=== PATIENT | male | born 1960 | race Caucasian/White ===

== ENCOUNTER → 2017-09-25 | Outpatient (CLI) | payer OTHER ==
--- NOTE | 2017-09-25 17:41 | XR ---
EXAMINATION TYPE: XR chest 2V DATE OF EXAM: 09/25/2017 COMPARISON: 02/20/2016 HISTORY: Leg edema TECHNIQUE: Frontal and lateral views of the chest are obtained. FINDINGS: Heart and mediastinum are normal. There is emphysema in the right upper lobe. There is no heart failure. Costophrenic angles are clear. Bony thorax is intact. IMPRESSION: Emphysema. No acute lung disease. No change compared to old exam.
== END | disposition home or self-care (01) ==
LOC: RADXRMAIN 16:10
PROVIDERS: ATTEND Internal Medicine
DX: J43.9 Emphysema, unspecified (principal)
CPT/HCPCS: 71046

== ENCOUNTER 2018-11-15 08:51 | Inpatient (IN) | payer OTHER ==
[2018-11-15] MEDS ORDERED: IPRATROPIUM-ALBUTEROL 3 ML NEB INHALATION STA ×2 (09:03→09:26)
[2018-11-15] MEDS ORDERED: FUROSEMIDE 10 MG/ML 4 ML VIAL IV STA (09:14)
[2018-11-15] MEDS ORDERED: methylPREDNISolone SOD SUCCI 125 MG/2 ML VIAL IV STA (09:14)
--- NOTE | 2018-11-15 09:26 | ED ---
SOB HPI - General Chief Complaint: Shortness of Breath Stated Complaint: Sob Time Seen by Provider: 11/15/18 08:55 Source: patient, EMS, RN notes reviewed, old records reviewed Mode of arrival: EMS Limitations: no limitations - History of Present Illness Initial Comments: This is a 58-year-old male the ER for evaluation shortness of breath severe shortness breath cough congestion. Significant distress poor strain but in for low pulse ox and difficulty breathing. Patient's brought in by EMS history obtained by EMS. Patient denies any chest pain. No recent change in medications. No significant recent hospitalizations - Related Data Home Medications Medication Instructions Recorded Confirmed Ferrous Sulfate [Feosol] 325 mg PO DAILY 02/19/16 03/02/16 Folic Acid 1 mg PO DAILY 02/19/16 03/02/16 Metoprolol Tartrate [Lopressor] 50 mg PO DAILY 02/19/16 03/02/16 Pravastatin Sodium [Pravachol] 20 mg PO DAILY 02/19/16 03/02/16 Triamcinolone 0.1% Cream [Kenalog 1 cream TOPICAL BID 02/20/16 03/02/16 0.1% Cream] Previous Rx's Medication Instructions Recorded Aspirin 81 mg PO DAILY #0 chew 02/27/16 Cephalexin [Keflex] 500 mg PO TID #15 cap 02/27/16 Clobetasol Propionate [Temovate 1 applic TOPICAL BID applic 02/27/16 0.05% Cream] Docusate [Colace] 100 mg PO BID #20 cap 02/27/16 Furosemide [Lasix] 40 mg PO BID@0900,1600 #60 tab 02/27/16 HYDROcodone/APAP 5-325MG [Pease 1 each PO Q6HR PRN #20 tab 02/27/16 5-325] Multivitamins, Thera [Multivitamin 1 each PO DAILY@1200 #30 tab 02/27/16 (formulary)] SILVER sulfADIAZINE CREAM 1 applic TOPICAL DAILY #1 tube 02/29/16 [Silvadene Cream] Allergies Allergy/AdvReac Type Severity Reaction Status Date / Time No Known Allergies Allergy Verified 11/15/18 09:00 Review of Systems ROS Statement: Those systems with pertinent positive or pertinent negative responses have been documented in the HPI. ROS Other: All systems not noted in ROS Statement are negative. Past Medical History Past Medical History: Heart Failure, Hyperlipidemia, Hypertension, Skin Disorder, Sleep Apnea/CPAP/BIPAP Additional Past Medical History / Comment(s): uses CPAP, occasional diarrhea, bout of CHF 8 yrs. ago, psoriasis History of Any Multi-Drug Resistant Organisms: None Reported Past Surgical History: Cholecystectomy Past Anesthesia/Blood Transfusion Reactions: No Reported Reaction Additional Past Anesthesia/Blood Transfusion Reaction / Comment(s): never had anesthesia Past Psychological History: No Psychological Hx Reported Smoking Status: Former smoker Past Alcohol Use History: None Reported Past Drug Use History: None Reported - Past Family History Sister(s) Family Medical History: Cancer Additional Family Medical History / Comment(s): lung CA General Exam Limitations: no limitations General appearance: alert, in no apparent distress Head exam: Present: atraumatic, normocephalic, normal inspection Eye exam: Present: normal appearance, PERRL, EOMI. Absent: scleral icterus, conjunctival injection, periorbital swelling ENT exam: Present: normal exam, mucous membranes moist Neck exam: Present: normal inspection. Absent: tenderness, meningismus, lymphadenopathy Respiratory exam: Present: respiratory distress, wheezes, accessory muscle use, decreased breath sounds, prolonged expiratory. Absent: normal lung sounds bilaterally, rales, rhonchi, stridor Cardiovascular Exam: Present: normal rhythm, tachycardia, normal heart sounds. Absent: systolic murmur, diastolic murmur, rubs, gallop, clicks GI/Abdominal exam: Present: soft, normal bowel sounds. Absent: distended, tenderness, guarding, rebound, rigid Extremities exam: Present: normal inspection, full ROM, normal capillary refill. Absent: tenderness, pedal edema, joint swelling, calf tenderness Back exam: Present: normal inspection Neurological exam: Present: alert, oriented X3, CN II-XII intact Psychiatric exam: Present: normal affect, normal mood Skin exam: Present: warm, dry, intact, normal color. Absent: rash Course Vital Signs 11/15/18 11/15/18 11/15/18 08:55 08:56 09:14 Temperature 97.3 F L Pulse Rate 111 H 100 110 H Respiratory 32 H Rate Blood Pressure 123/75 O2 Sat by Pulse 93 L Oximetry 11/15/18 09:21 Temperature Pulse Rate Respiratory 35 H Rate Blood Pressure O2 Sat by Pulse Oximetry - Reevaluation(s) Reevaluation #1: 11/15/18 10:55 Medical record is reviewed Reevaluation #2: 11/15/18 10:55 Improvement breathing treatment we'll place on BiPAP Medical Decision Making - Medical Decision Making 88 male the ER for evaluation shortness breath COPD and CHF exacerbation. We'll admit for continued breathing treatments - Lab Data Result diagrams: 11/15/18 09:11 11/15/18 09:11 Lab Results 11/15/18 11/15/18 11/15/18 Range/Units 09:11 09:11 09:11 WBC 13.4 H (3.8-10.6) k/uL RBC 5.77 (4.30-5.90) m/uL Hgb 17.2 (13.0-17.5) gm/dL Hct 52.9 (39.0-53.0) % MCV 91.7 (80.0-100.0) fL MCH 29.8 (25.0-35.0) pg MCHC 32.5 (31.0-37.0) g/dL RDW 14.8 (11.5-15.5) % Plt Count 416 (150-450) k/uL PT (9.0-12.0) sec INR (<1.2) APTT (22.0-30.0) sec Sodium 133 L (137-145) mmol/L Potassium 4.0 (3.5-5.1) mmol/L Chloride 100 (98-107) mmol/L Carbon Dioxide 10 L (22-30) mmol/L Anion Gap 23 mmol/L BUN 22 H (9-20) mg/dL Creatinine 1.51 H (0.66-1.25) mg/dL Est GFR (CKD-EPI)AfAm 59 (>60 ml/min/1.73 sqM) Est GFR (CKD-EPI)NonAf 51 (>60 ml/min/1.73 sqM) Glucose 145 H (74-99) mg/dL Plasma Lactic Acid Jules (0.7-2.0) mmol/L Calcium 9.6 (8.4-10.2) mg/dL Magnesium 2.4 H (1.6-2.3) mg/dL Total Bilirubin 0.7 (0.2-1.3) mg/dL AST 55 (17-59) U/L ALT 33 (21-72) U/L Alkaline Phosphatase 84 (38-126) U/L Creatine Kinase 308 H (55-170) U/L Troponin I <0.012 (0.000-0.034) ng/mL Total Protein 8.1 (6.3-8.2) g/dL Albumin 4.8 (3.5-5.0) g/dL 11/15/18 11/15/18 11/15/18 Range/Units 09:11 10:10 10:10 WBC (3.8-10.6) k/uL RBC (4.30-5.90) m/uL Hgb (13.0-17.5) gm/dL Hct (39.0-53.0) % MCV (80.0-100.0) fL MCH (25.0-35.0) pg MCHC (31.0-37.0) g/dL RDW (11.5-15.5) % Plt Count (150-450) k/uL PT 10.0 (9.0-12.0) sec INR 0.9 (<1.2) APTT 23.8 (22.0-30.0) sec Sodium (137-145) mmol/L Potassium (3.5-5.1) mmol/L Chloride (98-107) mmol/L Carbon Dioxide (22-30) mmol/L Anion Gap mmol/L BUN (9-20) mg/dL Creatinine (0.66-1.25) mg/dL Est GFR (CKD-EPI)AfAm (>60 ml/min/1.73 sqM) Est GFR (CKD-EPI)NonAf (>60 ml/min/1.73 sqM) Glucose (74-99) mg/dL Plasma Lactic Acid Jules 7.4 H* 5.7 H* (0.7-2.0) mmol/L Calcium (8.4-10.2) mg/dL Magnesium (1.6-2.3) mg/dL Total Bilirubin (0.2-1.3) mg/dL AST (17-59) U/L ALT (21-72) U/L Alkaline Phosphatase (38-126) U/L Creatine Kinase (55-170) U/L Troponin I (0.000-0.034) ng/mL Total Protein (6.3-8.2) g/dL Albumin (3.5-5.0) g/dL - EKG Data -: EKG Interpreted by Me (EKG shows sinus tachycardia rate of 109, MI 154, QRS 70, QTc 447) - Radiology Data Radiology results: report reviewed (Chest x-rays negative for acute disease), image reviewed Critical Care Time Critical Care Time: Yes Total Critical Care Time: 31 Disposition Clinical Impression: Congestive heart failure, Acute exacerbation of chronic obstructive airways disease, Acute respiratory failure, Diastolic CHF, acute on chronic Disposition: ADMITTED IP TO THIS HOSP Condition: Fair Is patient prescribed a controlled substance at d/c from ED?: No Referrals: Roosevelt Ramos MD [Primary Care Provider] - 1-2 days
[2018-11-15 09:43] LABS: HCT 52.9 % (39.0-53.0); HGB 17.2 gm/dL (13.0-17.5); MCH 29.8 pg (25.0-35.0); MCHC 32.5 g/dL (31.0-37.0); MCV 91.7 fL (80.0-100.0); Mean Platelet Volume 7.1; Platelet Count 416 k/uL (150-450); RBC 5.77 m/uL (4.30-5.90); RDW 14.8 % (11.5-15.5); WBC 13.4 k/uL (3.8-10.6)
[2018-11-15 09:46] LABS: Albumin 4.8 g/dL (3.5-5.0); Calcium 9.6 mg/dL (8.4-10.2); Magnesium 2.4 mg/dL (1.6-2.3); Total Bilirubin 0.7 mg/dL (0.2-1.3); Total Protein 8.1 g/dL (6.3-8.2)
--- NOTE | 2018-11-15 10:27 | XR ---
EXAMINATION TYPE: XR chest 1V portable DATE OF EXAM: 11/15/2018 COMPARISON: 09/25/2017 INDICATION: Short of breath TECHNIQUE: Single frontal view of the chest is obtained. FINDINGS: The heart size is normal. The pulmonary vasculature is normal. Some mild bibasilar infiltrates are present, likely on the basis of subsegmental atelectasis. Follow- up can be performed as clinically indicated IMPRESSION: 1. Suggestion of mild bibasilar atelectasis.
[2018-11-15 10:29] LABS: INR 0.9 (<1.2); Partial Thromboplastin Time 23.8 sec (22.0-30.0)
[2018-11-15] MEDS ORDERED: ALBUTEROL NEBULIZED 2.5 MG/3 ML INHALATION PRN (10:53)
[2018-11-15 11:05] LABS: Band Neutrophils % 13 %; Eosinophils # (M) 0.13 k/uL (0-0.7); Lymphocytes # (M) 0.67 k/uL (1.0-4.8); Metamyelocytes # (M) 0.13 k/uL (0); Metamyelocytes % 1 %; Monocytes # (M) 0.13 k/uL (0-1.0); Myelocytes # (M) 0.13 k/uL (0); Myelocytes % 1 %; Neutrophils % (M) 80 %; Nucleated Red Blood Cells 0 /100 WBC (0-0); Total Cells Counted 200
[2018-11-15] MEDS: IPRATROPIUM-ALBUTEROL 3 ML NEB INHALATION SCH ×3 (11:46→19:29)
[2018-11-15] MEDS ORDERED: methylPREDNISolone SOD SUCCI 125 MG/2 ML VIAL IV SCH ×2 (12:00→16:00)
[2018-11-15] MEDS ORDERED: SODIUM CHLORIDE 0.9% 500 ML 500 ML IV ONE (12:09)
[2018-11-15] MEDS ORDERED: SODIUM CHLORIDE 0.9% 2,000 ML IV ONE (12:09)
--- NOTE | 2018-11-15 12:15 | CT ---
CT CHEST FOR PULMONARY EMBOLISM. EXAMINATION TYPE: CT angio chest DATE OF EXAM: 11/15/2018 INDICATION: SOB CT DLP: 445.3 mGycm, Automated exposure control for dose reduction was used. CONTRAST: Patient injected with 100 mL of Isovue 370. COMPARISON: None TECHNIQUE: CT of the chest is performed on a spiral scan at 2 mm thick sections. Study is performed with intravenous contrast timed for evaluation for pulmonary embolism. This will limit additional po rtions of the evaluation. 3-D MIP images reconstructed by the technologist are reviewed on the compu ter in the coronal and sagittal planes. FINDINGS: No persistent filling defects are evident to suggest an acute pulmonary embolism. No suspicious mcclelland ges for right strain. Above the level the tasha in the pretracheal space is a prominent lymph node measuring 1.2 cm. There are additional shotty lymph nodes at the aortopulmonic window. There is some mild increased lung markings in the periphery of the lung bases. Some early pulmonary f ibrosis may be present. Emphysematous blebs and bulla are present throughout the bilateral lungs chace edly increasing in the upper lung bonilla. The ascending aorta diameter at the level of the main pulmonary artery is 3.2 cm. The main pulmonary artery diameter at the bifurcation is 2.7 cm. Lung windows are clear. There is an azygos fissure, a normal variant. Limited CT section through the upper abdomen are unremarkable. IMPRESSIONS: 1.
[2018-11-15] MEDS: SODIUM CHLORIDE 0.9% 1,000 ML IV SCH ×3 (12:19→22:14)
[2018-11-15 13:30] LABS: Glucose,Whole Blood 111 mg/dL (75-99)
--- NOTE | 2018-11-15 14:03 | P.HPIM ---
History of Present Illness Patient is a pleasant 58-year-old pleasant gentleman came in with comments of for severe shortness of breath and cough without any sputum production. Patient does have COPD denied any fever chills doesn't have any leukocytosis has highly elevated lactic acid of around 7.1, lactic acid is coming down now received 1 L of fluid presently in 200 mL of normal saline per hour. Patient is quite a bit dehydrated dry patient does have history of congestive heart failure with ejection fraction mildly decreased to 45-50%. Does have acute renal failure had 1 episode of diarrhea denied any dysuria. D-dimer is elevated to 30 because of which patient had a CAT scan of the chest which did not show any significant abnormality except for mild the nonspecific groundglass opacity, BNP is 76 patient denied any history of orthopnea paroxysmal nocturnal dyspnea does have any pedal edema. Review of Systems REVIEW OF SYSTEMS: CONSTITUTIONAL: No fever, no malaise, no fatigue. HEENT: No recent visual problems or hearing problems. Denied any sore throat. CARDIOVASCULAR: No chest pain, orthopnea, PND, no palpitations, no syncope. PULMONARY:, no hemoptysis. GASTROINTESTINAL: No diarrhea, no nausea, no vomiting, no abdominal pain. NEUROLOGICAL: No headaches, no weakness, no numbness. HEMATOLOGICAL: Denies any bleeding or petechiae. GENITOURINARY: Denies any burning micturition, frequency, or urgency. MUSCULOSKELETAL/RHEUMATOLOGICAL: Denies any joint pain, swelling, or any muscle pain. ENDOCRINE: Denies any polyuria or polydipsia. The rest of the 14-point review of systems is negative. Past Medical History Past Medical History: Heart Failure, COPD, Hyperlipidemia, Hypertension, Skin Disorder, Sleep Apnea/CPAP/BIPAP Additional Past Medical History / Comment(s): SHARI with CPap, anemia, psoriasis, past bilateral leg cellulitis, diverticular disease, sinus problems. History of Any Multi-Drug Resistant Organisms: None Reported Past Surgical History: Cholecystectomy Additional Past Surgical History / Comment(s): colonoscopy Past Anesthesia/Blood Transfusion Reactions: No Reported Reaction Additional Past Anesthesia/Blood Transfusion Reaction / Comment(s): never had anesthesia Past Psychological History: No Psychological Hx Reported Additional Psychological History / Comment(s): Pt resides with his brother. He uses no assistive devices. He has never driven, family or neighbors take him to [employer]. He manages his own medications. Smoking Status: Former smoker Past Alcohol Use History: None Reported Additional Past Alcohol Use History / Comment(s): Pt started smoking in 1971 and quit in 2006. Past Drug Use History: None Reported - Past Family History Mother Family Medical History: Myocardial Infarction (ID) Additional Family Medical History / Comment(s): Pt does not know at what age his mother had a ID Father Family Medical History: Myocardial Infarction (ID) Additional Family Medical History / Comment(s): 3 MIs. Pt does not know at what age father had first ID. Sister(s) Family Medical History: Cancer Additional Family Medical History / Comment(s): lung CA Medications and Allergies Home Medications Medication Instructions Recorded Confirmed Type Aspirin 81 mg PO DAILY #0 chew 02/27/16 11/15/18 Rx Albuterol Inhaler [Ventolin Hfa 2 puff INHALATION RT-Q6H PRN 11/15/18 11/15/18 History Inhaler] Folic Acid 1 mg PO DAILY 11/15/18 11/15/18 History Furosemide [Lasix] 40 mg PO DAILY 11/15/18 11/15/18 History Losartan [Cozaar] 25 mg PO DAILY 11/15/18 11/15/18 History Metoprolol Succinate (ER) [Toprol 50 mg PO DAILY 11/15/18 11/15/18 History XL] Multivitamins, Thera [Multivitamin 1 tab PO DAILY 11/15/18 11/15/18 History (formulary)] Pravastatin Sodium [Pravachol] 40 mg PO HS 11/15/18 11/15/18 History QUEtiapine XR [SEROquel XR] 50 mg PO HS 11/15/18 11/15/18 History Spironolactone 50 mg PO DAILY 11/15/18 11/15/18 History Allergies Allergy/AdvReac Type Severity Reaction Status Date / Time No Known Allergies Allergy Verified 11/15/18 11:31 Physical Exam Vitals: Vital Signs Temp Pulse Resp BP Pulse Ox 11/15/18 12:49 97.6 F 115 H 26 H 11/15/18 12:41 110 H 26 H 97/68 93 L 11/15/18 12:10 111 H 28 H 75/34 94 L 11/15/18 09:21 35 H 11/15/18 09:14 110 H 11/15/18 08:56 100 07/15/19 08:55 97.3 F L 111 H 32 H 123/75 93 L Intake and Output 11/14/18 11/15/18 11/15/18 22:59 06:59 14:59 Other: Weight 90.718 kg PHYSICAL EXAMINATION: GENERAL: The patient is alert and oriented x3, not in any acute distress. Well developed, well nourished. HEENT: Pupils are round and equally reacting to light. EOMI. No scleral icterus. No conjunctival pallor. Normocephalic, atraumatic. No pharyngeal erythema. No thyromegaly. CARDIOVASCULAR: S1 and S2 present. No murmurs, rubs, or gallops. PULMONARY: Minimal expiratory wheezing minimal bibasilar crackles were appreciated today entry into bilateral lung bonilla off BiPAP on 3 L of oxygen and doesn't use any oxygen at home ABDOMEN: Soft, nontender, nondistended, normoactive bowel sounds. No palpable organomegaly. MUSCULOSKELETAL: No joint swelling or deformity. EXTREMITIES: No cyanosis, clubbing, or pedal edema. NEUROLOGICAL: Gross neurological examination did not reveal any focal deficits. SKIN: No rashes. Results CBC & Chem 7: 11/15/18 09:11 11/15/18 09:11 Labs: Abnormal Lab Results - Last 24 Hours (Table) 11/15/18 11/15/18 11/15/18 Range/Units 09:11 09:11 09:11 WBC 13.4 H (3.8-10.6) k/uL Neutrophils # (Manual) 12.40 H (1.3-7.7) k/uL Lymphocytes # (Manual) 0.67 L (1.0-4.8) k/uL Metamyelocytes # (Man) 0.13 H (0) k/uL Myelocytes # (Manual) 0.13 H (0) k/uL D-Dimer (<0.60) mg/L FEU Sodium 133 L (137-145) mmol/L Carbon Dioxide 10 L (22-30) mmol/L BUN 22 H (9-20) mg/dL Creatinine 1.51 H (0.66-1.25) mg/dL Glucose 145 H (74-99) mg/dL POC Glucose (mg/dL) (75-99) mg/dL Plasma Lactic Acid Jules 7.4 H* (0.7-2.0) mmol/L Magnesium 2.4 H (1.6-2.3) mg/dL Creatine Kinase 308 H (55-170) U/L 11/15/18 11/15/18 11/15/18 Range/Units 10:10 10:10 13:16 WBC (3.8-10.6) k/uL Neutrophils # (Manual) (1.3-7.7) k/uL Lymphocytes # (Manual) (1.0-4.8) k/uL Metamyelocytes # (Man) (0) k/uL Myelocytes # (Manual) (0) k/uL D-Dimer 30.53 H (<0.60) mg/L FEU Sodium (137-145) mmol/L Carbon Dioxide (22-30) mmol/L BUN (9-20) mg/dL Creatinine (0.66-1.25) mg/dL Glucose (74-99) mg/dL POC Glucose (mg/dL) 111 H (75-99) mg/dL Plasma Lactic Acid Jules 5.7 H* (0.7-2.0) mmol/L Magnesium (1.6-2.3) mg/dL Creatine Kinase (55-170) U/L Thrombosis Risk Factor Assmnt - Choose All That Apply Any of the Below Risk Factors Present?: Yes Each Factor Represents 1 point: Age 41-60 years, Heart failure (<1month), Obesity (BMI >25) Other Risk Factors: No Other congenital or acquired thrombophilia - If yes, enter type in comment: No Thrombosis Risk Factor Assessment Total Risk Factor Score: 3 Thrombosis Risk Factor Assessment Level: Moderate Risk Assessment and Plan Plan: -Acute hypercapnic respiratory failure secondary to COPD exacerbation significant only inhalational treatments systemic steroids which will be continued. Patient's quit smoking and 2011. Doesn't use any oxygen at home presently off BiPAP and 3 L of oxygen. -Acute renal failure.: Prerenal azotemia severe intravascular depletion probably because of the diuretic therapy and lisinopril may be contributing to that these medications will be held -Congestive heart failure chronic systolic dysfunction mildly decreased ejection fraction 45% patient is volume depleted IV fluid resuscitation with close monitoring of his respiratory status and pulmonary edema status repeat chest x- ray tomorrow -Hypertension and patient was hypotensive hold off on antidepressant medications except for metoprolol -Sleep apnea and uses CPAP machine at home which will be continued here Hypovolemic hyponatremia DVT prophylaxis with subcutaneous heparin anoxic and will be discontinued because of poor renal function and GI prophylaxis with Pepcid
[2018-11-15] MEDS: HEPARIN SODIUM,PORCINE 5,000 UNIT/ML 1 ML VIAL SQ SCH (15:57)
[2018-11-15] MEDS ORDERED: ONDANSETRON 4 MG/2 ML VIAL IVP STA (16:18)
[2018-11-15] MEDS: methylPREDNISolone SOD SUCCI 40 MG/ML 1 ML VIAL IV SCH (19:01)
[2018-11-15] MEDS: BUDESONIDE 1 MG/2 ML NEBU INHALATION SCH (19:30)
[2018-11-15] MEDS: FORMOTEROL FUMARATE 20 MCG/2 ML NEBU INHALATION SCH (19:30)
--- NOTE | 2018-11-15 21:08 | CONS ---
CONSULTATION PULMONARY/CRITICAL CARE CONSULTATION: DATE OF CONSULTATION: 11/15/2018 This is a 58-year-old male whom I saw in the emergency room. I was actually called by Dr. Holloway and discussed the case with him. He was waiting for a CT angiogram result when I first talked to him. The patient presented to the hospital with complaints of shortness of breath. The patient apparently stated that he was doing well up until about a day or so prior to admission. The patient apparently presented with shortness of breath and cough and congestion. The patient was seen in the emergency room after being brought in by EMS. The patient had an elevated lactic acid level. The patient also had a very elevated D-dimer. The patient's CT angiogram was negative for pulmonary embolism. His chest x-ray is reasonably stable. The patient sees Dr. Webber in the office both for sleep apnea and also for COPD. He was a smoker in the past. He does have an inhaler or nebulizer machine at home. Not a particularly good historian. Initially when he came into the emergency room he was placed on oxygen. Because of increased work of breathing, he was placed on BiPAP and then was taken off of BiPAP and placed back on nasal oxygen. Anyway, the patient does feel a bit better now than when he first came in. We did admit the patient to the ICU for further evaluation and workup. HOME MEDICATIONS: His home medications include: 1. Iron. 2. Folic acid. 3. Lopressor. 4. Pravachol. 5. Kenalog cream. 6. In addition, he apparently was on Keflex, aspirin, steroid cream, Colace, Lasix, [place], multiple vitamins, Silvadene cream and either a rescue inhaler or nebulizer machine (he was not sure). ALLERGIES: DENIED. PAST MEDICAL HISTORY: His past medical history is apparently positive for: 1. CHF. 2. Hyperlipidemia. 3. Hypertension. 4. Sleep apnea. 5. Possible COPD. He does use CPAP for his sleep apnea syndrome. 6. He also apparently has a history of psoriasis. He has been told by Dr. Webber that he does have COPD. I am assuming it is relatively mild, as the only thing he is on at home is a rescue inhaler or updraft machine with albuterol. SURGICAL HISTORY: Surgical history includes previous cholecystectomy. SOCIAL HISTORY: Positive for previous tobacco use. He smoked about 35 years at more than a pack a day. He denies any alcohol use or illicit drug use. FAMILY HISTORY: Positive for a sister with cancer of the lung. He cannot really give me much of a history of his mother and father. REVIEW OF SYSTEMS: CONSTITUTIONAL: Negative. NEUROLOGIC: Negative. HEENT: Negative. CARDIOVASCULAR: Negative. PULMONARY: Shortness of breath, cough, congestion. GI: Nausea and one episode of vomiting. : Negative. RHEUMATOLOGIC: Negative. IMMUNOLOGIC: Negative. ENDOCRINOLOGIC: Negative. DERMATOLOGIC: Negative. PHYSICAL EXAMINATION: VITAL SIGNS: Vital signs are reviewed. Temperature 97.6, heart rate about 115, respiratory rate 26, blood pressure 97/68 with mean of 77. Saturations on 4 L are 93%. GENERAL: He appears in no acute distress. HEENT EXAMINATION: Grossly unremarkable. His mouth appears dry. Nasal oxygen noted. NECK: Supple. Full range of motion. No adenopathy or thyromegaly. Neck veins are flat. CARDIOVASCULAR: Cardiovascular examination reveals mild tachycardia. Heart rate about 110. S1, S2 normal. No murmur. LUNGS: Lungs reveal mostly clear breath sounds. A few scattered wheezes. No rhonchi or crackles. ABDOMEN: Soft. Bowel sounds are heard. EXTREMITIES are intact. No edema. SKIN: Without rash. NEUROLOGIC: Neurologic examination is brief but nonfocal. LAB DATA/IMAGING: Reviewed. White count 13.4, hemoglobin 17.2, hematocrit 52.9, platelet count 416,000. PT, INR, PTT all normal. D-dimer 30.53. Sodium 133, potassium 4, chloride 100, CO2 10. Anion gap is 23. BUN and creatinine were 22 and 1.51. Lactic acid was 7.4; repeat 5.7. Calcium 9.6, magnesium 2.4. Creatine kinase is 308. Albumin 4.8. N-terminal proBNP 174. Troponin was negative. Chest x-ray shows mild bibasilar atelectasis. CTA of the chest shows no evidence of pulmonary embolism. There are some bibasilar interstitial changes. Medications are reviewed. He is currently on: 1. Updrafts with albuterol. 2. Aspirin. 3. Pepcid. 4. Folic acid. 5. Subcutaneous heparin. 6. DuoNeb. 7. Solu-Medrol. 8. Metoprolol. 9. Pravastatin. 10.Seroquel. 11.Basic IV. ASSESSMENT: 1. Shortness of breath, likely related to underlying chronic obstructive pulmonary disease exacerbation. I do not see any evidence of heart failure or pneumonia in this patient. 2. Anion gap metabolic acidosis of unclear etiology. The patient's lactic acid is elevated. Rule out sepsis. 3. History of hyperlipidemia. 4. History of hypertension. 5. History of sleep apnea syndrome, currently maintained on CPAP. 6. History of heart failure. 7. History of psoriasis. PLAN: The patient's medications are reviewed. We will make sure he is on DuoNeb, Pulmicort and formoterol. Also make sure he is on corticosteroids. No antibiotics are necessary at this time other than if we think there is ongoing sepsis; it would not be unreasonable to start antibiotics and de-escalate or discontinue them in 24 to 48 hours, depending on what pops up in the way of lab and other data. We will continue to follow. Prognosis is guarded. MMODL / IJN: [id number] /
[2018-11-15] MEDS: ACETAMINOPHEN TAB 325 MG TAB PO PRN (22:05)
[2018-11-15] MEDS: PRAVASTATIN SODIUM 40 MG TAB PO SCH (22:12)
[2018-11-15] MEDS: QUEtiapine 25 MG TAB PO SCH (22:12)
[2018-11-15] MEDS: FAMOTIDINE 20 MG TAB PO SCH (22:13)
[2018-11-16] MEDS: HEPARIN SODIUM,PORCINE 5,000 UNIT/ML 1 ML VIAL SQ SCH ×3 (00:15→16:30)
[2018-11-16] MEDS: methylPREDNISolone SOD SUCCI 40 MG/ML 1 ML VIAL IV SCH ×4 (00:15→17:33)
[2018-11-16] MEDS: SODIUM CHLORIDE 0.9% 1,000 ML IV SCH ×4 (03:32→20:22)
[2018-11-16] MEDS: ACETAMINOPHEN TAB 325 MG TAB PO PRN ×3 (04:50→21:15)
[2018-11-16] MEDS: IPRATROPIUM-ALBUTEROL 3 ML NEB INHALATION SCH ×4 (06:52→19:09)
[2018-11-16] MEDS: FORMOTEROL FUMARATE 20 MCG/2 ML NEBU INHALATION SCH ×2 (06:52→19:09)
[2018-11-16] MEDS: BUDESONIDE 1 MG/2 ML NEBU INHALATION SCH ×2 (06:52→19:09)
--- NOTE | 2018-11-16 07:00 | XR ---
EXAMINATION TYPE: XR chest 1V DATE OF EXAM: 11/16/2018 CLINICAL HISTORY: Difficulty breathing progress study. TECHNIQUE: Single AP portable semiupright view of the chest is obtained. COMPARISON: Chest x-ray and CTA chest from one day earlier FINDINGS: Chronic emphysematous and parenchymal fibrotic changes remain present bilaterally with carlotta e increased opacity in the lower lungs again seen. Redemonstration of vesicles lobe/fissure noted. Ca rdiac silhouette size is stable and enlarged. Osseous structures are demineralized. IMPRESSION: Overall stable findings, chronic emphysematous and parenchymal fibrotic changes with pe rsistent bilateral lower lung edema and/or infiltrates.
[2018-11-16 07:22] LABS: Albumin 2.8 g/dL (3.5-5.0); Calcium 7.5 mg/dL (8.4-10.2); Potassium 3.9 mmol/L (3.5-5.1); Total Bilirubin 0.3 mg/dL (0.2-1.3); Total Protein 5.2 g/dL (6.3-8.2)
[2018-11-16 07:49] LABS: HCT 37.8 % (39.0-53.0); MCHC 33.4 g/dL (31.0-37.0); Mean Platelet Volume 7.2; Platelet Count 237 k/uL (150-450); RDW 14.6 % (11.5-15.5); WBC 11.8 k/uL (3.8-10.6)
[2018-11-16 07:54] LABS: HGB 12.6 gm/dL (13.0-17.5)
[2018-11-16] MEDS: FAMOTIDINE 20 MG TAB PO SCH ×2 (08:37→21:16)
[2018-11-16] MEDS: QUEtiapine 25 MG TAB PO SCH ×2 (08:38→21:16)
[2018-11-16] MEDS: FOLIC ACID 1 MG TAB PO SCH (08:38)
[2018-11-16 08:56] LABS: HCT 38.9 % (39.0-53.0); HGB 12.6 gm/dL (13.0-17.5); MCH 30.1 pg (25.0-35.0); MCHC 32.4 g/dL (31.0-37.0); MCV 92.7 fL (80.0-100.0); Mean Platelet Volume 6.2; Platelet Count 257 k/uL (150-450); RBC 4.19 m/uL (4.30-5.90); RDW 14.1 % (11.5-15.5); WBC 12.6 k/uL (3.8-10.6)
[2018-11-16] MEDS ORDERED: ENOXAPARIN 40 MG/0.4 ML SYRINGE SQ SCH (09:00)
[2018-11-16] MEDS ORDERED: METOPROLOL SUCCINATE (ER) 50 MG TAB.ER.24H PO SCH (09:00)
[2018-11-16] MEDS ORDERED: ONDANSETRON 4 MG/2 ML VIAL IVP PRN (09:02)
[2018-11-16] MEDS: ASPIRIN 81 MG PO SCH (09:32)
[2018-11-16] MEDS ORDERED: LACTATED RINGERS 1,000 ML IV SCH (09:45)
--- NOTE | 2018-11-16 09:59 | P.PN ---
Subjective Progress Note Date: 11/16/18 Principal diagnosis: Shortness of breath, anion gap metabolic acidosis rule out sepsis On 11/16/2018 patient was seen again in follow-up in the intensive care unit, he is lethargic, but arousable, currently on 2 L of oxygen with a pulse ox of 92- 94%, still slightly tachycardic, in sinus mechanism with a rate of 115 BPM, he is afebrile, blood pressures are somewhat marginal, with the systolic in the 90s and diastolic in the 50s. Patient has been fluid resuscitated with liters of normal saline, and patient had received normal saline at a rate of 200 ML per hour for last 24 hours. His lactic acid did come down to 1.9 on today's labs. We blood cell count is 12.6, hemoglobin is 12.6, as been nearly 5 g drop in hemoglobin since yesterday, likely hemodilution related. Serum sodium is 131, potassium is 3.9, chloride is 105, CO2 is 11, anion gap is down to 15, BUN is 30, creatinine is 1.20. Patient is nauseous, has had limited oral intake, no diarrhea, abdomen is distended but nontender, soft. Culture is negative thus far, blood culture is pending, C. diff as been ordered, has not been collected, urine culture is pending. Lung sounds are diminished, no significant rhonchi or wheezing, patient is on IV steroids, breathing treatments, empiric antibiotics in the form of Rocephin. Objective - Vital Signs Vital signs: Vital Signs Temp 98.0 F 11/16/18 08:00 Pulse 109 H 11/16/18 09:00 Resp 18 11/16/18 09:00 BP 105/61 11/16/18 09:00 Pulse Ox 92 L 11/16/18 09:00 Intake & Output 11/15/18 11/16/18 11/16/18 18:59 06:59 18:59 Intake Total 3550 2250 720 Output Total 600 1235 725 Balance 2950 1015 -5 Weight 90.718 kg 93.4 kg Intake: IV 2900 2050 600 0.9 2900 Sodium Chloride 0.9% 1, 0 550 000 ml @ 75 mls/hr IV . [id number] [facility] Rx#:[id number] cefTRIAXone 1 gm In 50 Sodium Chloride 0.9% 50 ml @ 100 mls/hr IVPB Q24HR [facility] Rx#:[id number] Intake, IV Titration 650 100 Amount Sodium Chloride 0.9% 1, 600 100 000 ml @ 75 mls/hr IV . [id number] [facility] Rx#:[id number] cefTRIAXone 1 gm In 50 Sodium Chloride 0.9% 50 ml @ 100 mls/hr IVPB Q24HR [facility] Rx#:[id number] Oral 100 120 Output: Urine 600 1235 725 Other: Voiding Method Indwelling Catheter Indwelling Catheter Indwelling Catheter - Exam GENERAL EXAM: Somewhat lethargic, but arousable, 58-year-old white male, on 2 L of oxygen comfortable in no apparent distress. HEAD: Normocephalic/atraumatic. EYES: Normal reaction of pupils, equal size. Conjunctiva pink, sclera white. NOSE: Clear with pink turbinates. THROAT: No erythema or exudates. NECK: No masses, no JVD, no thyroid enlargement, no adenopathy. CHEST: No chest wall deformity. Symmetrical expansion. LUNGS: Equal air entry with no crackles, wheeze, rhonchi or dullness. Dementia breath sounds bilaterally CVS: Regular rate and rhythm, normal S1 and S2, no gallops, no murmurs, no rubs ABDOMEN: Soft, nontender. No hepatosplenomegaly, normal bowel sounds, no guarding or rigidity. EXTREMITIES: No clubbing, no edema, no cyanosis, 2+ pulses and upper and lower extremities. MUSCULOSKELETAL: Muscle strength and tone normal. SPINE: No scoliosis or deformity SKIN: No rashes CENTRAL NERVOUS SYSTEM: Lethargic. No focal deficits, tone is normal in all 4 extremities. - Labs CBC & Chem 7: 11/16/18 08:44 11/16/18 06:40 Labs: Abnormal Lab Results - Last 24 Hours (Table) 11/15/18 11/15/18 11/15/18 Range/Units 09:11 09:11 09:11 WBC 13.4 H (3.8-10.6) k/uL RBC (4.30-5.90) m/uL Hgb (13.0-17.5) gm/dL Hct (39.0-53.0) % Neutrophils # (Manual) 12.40 H (1.3-7.7) k/uL Lymphocytes # (Manual) 0.67 L (1.0-4.8) k/uL Metamyelocytes # (Man) 0.13 H (0) k/uL Myelocytes # (Manual) 0.13 H (0) k/uL D-Dimer (<0.60) mg/L FEU Sodium 133 L (137-145) mmol/L Carbon Dioxide 10 L (22-30) mmol/L BUN 22 H (9-20) mg/dL Creatinine 1.51 H (0.66-1.25) mg/dL Glucose 145 H (74-99) mg/dL POC Glucose (mg/dL) (75-99) mg/dL Plasma Lactic Acid Jules 7.4 H* (0.7-2.0) mmol/L Calcium (8.4-10.2) mg/dL Magnesium 2.4 H (1.6-2.3) mg/dL AST (17-59) U/L Alkaline Phosphatase (38-126) U/L Creatine Kinase 308 H (55-170) U/L Total Protein (6.3-8.2) g/dL Albumin (3.5-5.0) g/dL 11/15/18 11/15/18 11/15/18 Range/Units 10:10 10:10 13:16 WBC (3.8-10.6) k/uL RBC (4.30-5.90) m/uL Hgb (13.0-17.5) gm/dL Hct (39.0-53.0) % Neutrophils # (Manual) (1.3-7.7) k/uL Lymphocytes # (Manual) (1.0-4.8) k/uL Metamyelocytes # (Man) (0) k/uL Myelocytes # (Manual) (0) k/uL D-Dimer 30.53 H (<0.60) mg/L FEU Sodium (137-145) mmol/L Carbon Dioxide (22-30) mmol/L BUN (9-20) mg/dL Creatinine (0.66-1.25) mg/dL Glucose (74-99) mg/dL POC Glucose (mg/dL) 111 H (75-99) mg/dL Plasma Lactic Acid Jules 5.7 H* (0.7-2.0) mmol/L Calcium (8.4-10.2) mg/dL Magnesium (1.6-2.3) mg/dL AST (17-59) U/L Alkaline Phosphatase (38-126) U/L Creatine Kinase (55-170) U/L Total Protein (6.3-8.2) g/dL Albumin (3.5-5.0) g/dL 11/15/18 11/15/18 11/16/18 Range/Units 14:01 19:35 06:40 WBC 11.8 H (3.8-10.6) k/uL RBC 4.20 L (4.30-5.90) m/uL Hgb 12.6 L D (13.0-17.5) gm/dL Hct 37.8 L (39.0-53.0) % Neutrophils # (Manual) (1.3-7.7) k/uL Lymphocytes # (Manual) (1.0-4.8) k/uL Metamyelocytes # (Man) (0) k/uL Myelocytes # (Manual) (0) k/uL D-Dimer (<0.60) mg/L FEU Sodium (137-145) mmol/L Carbon Dioxide (22-30) mmol/L BUN (9-20) mg/dL Creatinine (0.66-1.25) mg/dL Glucose (74-99) mg/dL POC Glucose (mg/dL) (75-99) mg/dL Plasma Lactic Acid Jules 3.9 H* 4.5 H* (0.7-2.0) mmol/L Calcium (8.4-10.2) mg/dL Magnesium (1.6-2.3) mg/dL AST (17-59) U/L Alkaline Phosphatase (38-126) U/L Creatine Kinase (55-170) U/L Total Protein (6.3-8.2) g/dL Albumin (3.5-5.0) g/dL 11/16/18 11/16/18 Range/Units 06:40 08:44 WBC 12.6 H (3.8-10.6) k/uL RBC 4.19 L (4.30-5.90) m/uL Hgb 12.6 L (13.0-17.5) gm/dL Hct 38.9 L (39.0-53.0) % Neutrophils # (Manual) (1.3-7.7) k/uL Lymphocytes # (Manual) (1.0-4.8) k/uL Metamyelocytes # (Man) (0) k/uL Myelocytes # (Manual) (0) k/uL D-Dimer (<0.60) mg/L FEU Sodium 131 L (137-145) mmol/L Carbon Dioxide 11 L (22-30) mmol/L BUN 30 H (9-20) mg/dL Creatinine (0.66-1.25) mg/dL Glucose (74-99) mg/dL POC Glucose (mg/dL) (75-99) mg/dL Plasma Lactic Acid Jules (0.7-2.0) mmol/L Calcium 7.5 L (8.4-10.2) mg/dL Magnesium (1.6-2.3) mg/dL AST 83 H (17-59) U/L Alkaline Phosphatase 37 L (38-126) U/L Creatine Kinase (55-170) U/L Total Protein 5.2 L (6.3-8.2) g/dL Albumin 2.8 L (3.5-5.0) g/dL Microbiology - Last 24 Hours (Table) 11/15/18 22:50 Stool Culture - Preliminary Stool Assessment and Plan Plan: Assessment: #1. Shortness of breath, multifactorial, related to COPD exacerbation, and sepsis. CTA chest was negative for pulmonary embolism, and some early pulmonary fibrosis changes with emphysematous blebs and blood #2. Septic shock, and the source is under investigation, chest x-ray showed chronic emphysematous and chronic parenchymal fibrotic changes, with persistent bilateral lower lung infiltrates, possibility of pneumonia is not excluded. #3. Anion gap metabolic acidosis related to sepsis, improved with fluid resuscitation #4. Diarrhea, dehydration #5. Acute kidney injury related to ATN #6. Mild hyponatremia, related to hypovolemia #7. Chronic congestive heart failure with chronic systolic dysfunction #8. COPD #9. Obstructive sleep apnea on CPAP therapy Plan: We will obtain flat plate film of the abdomen, patient is having abdominal stanchion, but no diarrhea, he is nauseous, has not been able to eat very much, we'll decrease IV fluids down to 100 ML per hour, cultures remain negative, awaiting the results of the blood and urine culture, will obtain urinalysis, continue with Aricept for empiric antibiotic coverage, continue with IV Solu- Medrol and nebulized treatments. CPAP at night. Obtain a blood gas. We'll proceed with CT of the abdomen and pelvis was done the results of the abdominal x-ray. We'll continue to monitor in the intensive care unit, GI and DVT prophylaxis. I performed a history & physical examination of the patient and discussed their management with my nurse practitioner, Chitra Juarez. I reviewed the nurse practitioner's note and agree with the documented findings and plan of care. Lung sounds are positive for diminished breath sounds. The findings and the impression was discussed with the patient. I attest to the documentation by the nurse practitioner. Time with Patient: Less than 30
[2018-11-16 10:11] LABS: ABG Base Excess -14.1 mmol/L; ABG HCO3 12 mmol/L (21-25); ABG Oxygen Saturation 95.1 % (94-97); ABG PCO2 25 mmHg (35-45); ABG PO2 78 mmHg (83-108); ABG TCO2 13 mmol/L (19-24); Allen Test Performed? Yes
--- NOTE | 2018-11-16 10:37 | XR ---
EXAMINATION TYPE: XR abdomen 1V DATE OF EXAM: 11/16/2018 10:16 AM CLINICAL HISTORY: Abdominal distention and nausea. TECHNIQUE: Two Upright KUB images of the abdomen are obtained. COMPARISON: None. FINDINGS: Gas-filled stomach is slightly prominent. There are gas-filled dilated small bowel loops in the upper to mid abdomen with stepladder pattern measuring up to 5.0 cm in size. There are gas promi nent small bowel loops in the lower abdomen and pelvis with slightly less prominent gas-filled coloni c loops in the periphery. Cholecystectomy clips are seen. Lung bases are clear. IMPRESSION: Overall nonspecific bowel gas pattern. Cannot exclude involving mid to distal small bowel obstruction . Progress studies are advised.
[2018-11-16 10:46] LABS: Band Neutrophils % 16 %; Lymphocytes # (M) 0.25 k/uL (1.0-4.8); Monocytes # (M) 0.38 k/uL (0-1.0); Neutrophils % (M) 80 %; Nucleated Red Blood Cells 0 /100 WBC (0-0); Total Cells Counted 200
[2018-11-16 10:47] LABS: Anisocytosis (M) Present; Poikilocytosis (M) Present
[2018-11-16 10:55] LABS: Band Neutrophils % 12 %; Lymphocytes # (M) 0.12 k/uL (1.0-4.8); Metamyelocytes # (M) 0.12 k/uL (0); Metamyelocytes % 1 %; Monocytes # (M) 0.35 k/uL (0-1.0); Neutrophils % (M) 85 %; Nucleated Red Blood Cells 0 /100 WBC (0-0); Total Cells Counted 200
[2018-11-16 10:57] LABS: Anisocytosis (M) Present; Poikilocytosis (M) Present
--- NOTE | 2018-11-16 11:59 | CT ---
EXAMINATION TYPE: CT abdomen pelvis w con DATE OF EXAM: 11/16/2018 COMPARISON: Abdominal x-ray earlier today. HISTORY: Abd pain, abnormal x-ray. CT DLP: 1422.8 mGycm, Automated Exposure Control for Dose Reduction was Utilized. CONTRAST: CT scan of the abdomen and pelvis is performed without oral but with IV Contrast, patient injected wi th 80 mL of Isovue 300. FINDINGS: LUNG BASES: There is dependent atelectasis and/or consolidation in both bases. Coronary artery calcif ication is present which is noted marked for underlying coronary artery disease. LIVER/GB: Cholecystectomy clips are seen. PANCREAS: No significant abnormality is seen. SPLEEN: No significant abnormality is seen. ADRENALS: No significant abnormality is seen. KIDNEYS: There is 1.4 cm simple appearing cyst lower pole of the left kidney. There are symmetric cor ticomedullary uptake but nonvisualized excretion in both kidneys. No hydronephrosis is evident bilate rally. Nogueira catheter is seen within bladder which is decompressed. BOWEL: Evaluation of bowel slightly suboptimal secondary to lack of enteric contrast. Stomach is not suspiciously dilated on CAT scan. There is fluid-filled prominence of the second portion of duodenum. There is transition into nondistended proximal ileal loops in the left upper to mid abdomen. There a re fluid filled and dilated small bowel loops scattered throughout the anterior and lower abdomen wit h several air-fluid levels. Small bowel loops are dilated nearly up to 4.0 cm in diameter. Fecal mate rial is seen in nondistended colon along the periphery. Terminal ileum is not dilated. There are some nondistended small bowel loops in the left abdomen. There appear to be alternating areas of dilated along with nondilated small bowel loops. Small bowel feces sign is present right upper pelvis. PROSTATE/SEMINAL VESICLES: No gross abnormality seen. LYMPH NODES: No greater than 1cm abdominal or pelvic lymph nodes are appreciated. OSSEOUS STRUCTURES: Facet arthropathy lower lumbar spine. Mild multilevel spurring. OTHER: No significant additional abnormality is seen. IMPRESSION: Overall nonspecific bowel gas pattern. Alternating areas of dilated and nondilated bowel suggest dynamic ileus, early or mild obstruction felt less likely.
[2018-11-16 13:48] LABS: Amorphous Sediment,Urine Rare /hpf; Appearance,Urine Cloudy (Clear); Bacteria,Urine Rare /hpf; Bilirubin,Urine Negative (Negative); Blood,Urine Small (Negative); Color,Urine Light Yellow; Glucose,Urine (UA) Negative (Negative); Ketones,Urine Negative (Negative); Leukocyte Esterase,Urine Negative (Negative); Mucus,Urine Rare /hpf; Nitrite,Urine Negative (Negative); Protein,Urine Trace (Negative); RBC,Urine 2 /hpf (0-5); Specific Gravity,Urine 1.029 (1.001-1.035); Urobilinogen,Urine <2.0 mg/dL (<2.0)
[2018-11-16 13:57] VITALS: BMI 28.7
--- NOTE | 2018-11-16 14:07 | P.GSCN ---
<Elise Chou - Last Filed: 11/16/18 14:04> History of Present Illness Consult date: 11/16/18 Reason for Consult: abdominal pain Requesting physician: Chitra Juarez History of present illness: CHIEF COMPLAINT: Abdominal pain HISTORY OF PRESENT ILLNESS: 58-year-old male admitted to hospital secondary to COPD exacerbation. General surgery was consulted for further evaluation of abdominal pain. Patient seen and examined at the bedside. Patients sister present. Patient reports abdominal pain that began yesterday. Pain mostly near epigastric region. He reports emesis yesterday morning and afternoon. No further emesis since then. He does report mild nausea. Nursing reports large bowel movement overnight. Patient's sister reports patient had a colonoscopy and EGD a few years ago. Upon review of EMR records, patient underwent colonoscopy in [address] Jay secondary to change in bowel habits. Pathology negative. No prior EGD available. Patient also reports that second a few years ago with Dr. Sánchez. PAST MEDICAL HISTORY: See list. PAST SURGICAL HISTORY: See list. SOCIAL HISTORY: No illicit drug use. REVIEW OF SYSTEMS: CONSTITUTIONAL: Denies fever or chills. HEENT: Denies blurred vision, vision changes, or eye pain. Denies hemoptysis CARDIOVASCULAR: Denies chest pain or pressure. RESPIRATORY: No shortness of breath. GASTROINTESTINAL: Refer to HPI for pertinent findings HEMATOLOGIC: Denies bleeding disorders. GENITOURINARY: Denies any blood in urine. SKIN: Denies pruitis. Denies rash. PHYSICAL EXAM: VITAL SIGNS: Reviewed. GENERAL: Well-developed in no acute distress. HEENT: No sclera icterus. Extraocular movements grossly intact. Moist buccal mucosa. Head is atraumatic, normocephalic. ABDOMEN: Soft. Mildly distended. Positive bowel sounds. Tenderness near epigastric region. No signs of peritonitis NEUROLOGIC: Alert and oriented. Cranial nerves II through XII grossly intact. LABORATORY DATA: WBC 12.6. Hemoglobin 12.6. Sodium 131. Potassium 3.9. BUN 30. Creatinine 1.2. Bilirubin 0.3. AST 83. ALT 42. IMAGING: CT abdomen/pelvis: Stomach is not suspiciously dilated. Fluid-filled prominence of second portion of duodenum. Transition into nondistended proximal ileal loops in the left upper to mid abdomen. There are fluid-filled and dilated small bowel loops scattered throughout the anterior and lower abdomen with several air fluid levels. Small bowel loops are dilated to 4 cm in diameter. Fecal material seen and nondistended colon. Overall nonspecific bowel gas pattern. Alternating areas of dilated and nondilated bowel suggesting dynamic ileus. Early or mild obstruction felt this likely. ASSESSMENT: 1. Abdominal pain 2. Ileus, small bowel obstruction less likely 3. History of colonoscopy in 2014 4. History of laparoscopic cholecystectomy PLAN: 1. NPO 2. No NG tube placement at this time unless patient develops vomiting 3. Conservative management at this time Nurse practitioner note has been reviewed by physician. Signing provider agrees with the documented findings, assessment, and plan of care. Past Medical History Past Medical History: Heart Failure, COPD, Hyperlipidemia, Hypertension, Skin Disorder, Sleep Apnea/CPAP/BIPAP Additional Past Medical History / Comment(s): SHARI with CPap, anemia, psoriasis, past bilateral leg cellulitis, diverticular disease, sinus problems. History of Any Multi-Drug Resistant Organisms: None Reported Past Surgical History: Cholecystectomy Additional Past Surgical History / Comment(s): colonoscopy Past Anesthesia/Blood Transfusion Reactions: No Reported Reaction Additional Past Anesthesia/Blood Transfusion Reaction / Comm: never had anesthesia Past Psychological History: No Psychological Hx Reported Additional Psychological History / Comment(s): Pt resides with his brother. He uses no assistive devices. He has never driven, family or neighbors take him to appts. He manages his own medications. Smoking Status: Former smoker Past Alcohol Use History: None Reported Additional Past Alcohol Use History / Comment(s): Pt started smoking in 1971 and quit in 2006. Past Drug Use History: None Reported - Past Family History Mother Family Medical History: Myocardial Infarction (CA) Additional Family Medical History / Comment(s): Pt does not know at what age his mother had a CA Father Family Medical History: Myocardial Infarction (CA) Additional Family Medical History / Comment(s): 3 MIs. Pt does not know at what age father had first CA. Sister(s) Family Medical History: Cancer Additional Family Medical History / Comment(s): lung CA Medications and Allergies Home Medications Medication Instructions Recorded Confirmed Type Aspirin 81 mg PO DAILY #0 chew 02/27/16 11/15/18 Rx Albuterol Inhaler [Ventolin Hfa 2 puff INHALATION RT-Q6H PRN 11/15/18 11/15/18 History Inhaler] Folic Acid 1 mg PO DAILY 11/15/18 11/15/18 History Furosemide [Lasix] 40 mg PO DAILY 11/15/18 11/15/18 History Losartan [Cozaar] 25 mg PO DAILY 11/15/18 11/15/18 History Metoprolol Succinate (ER) [Toprol 50 mg PO DAILY 11/15/18 11/15/18 History XL] Multivitamins, Thera [Multivitamin 1 tab PO DAILY 11/15/18 11/15/18 History (formulary)] Pravastatin Sodium [Pravachol] 40 mg PO HS 11/15/18 11/15/18 History QUEtiapine XR [SEROquel XR] 50 mg PO HS 11/15/18 11/15/18 History Spironolactone 50 mg PO DAILY 11/15/18 11/15/18 History Allergies Allergy/AdvReac Type Severity Reaction Status Date / Time No Known Allergies Allergy Verified 11/15/18 11:31 Surgical - Exam Vital Signs Temp Pulse Resp BP Pulse Ox 97.3 F L 111 H 32 H 123/75 93 L 11/15/18 08:55 11/15/18 08:55 11/15/18 08:55 11/15/18 08:55 11/15/18 08:55 Results - Labs 11/16/18 08:44 11/16/18 06:40 Abnormal Lab Results - Last 24 Hours (Table) 11/15/18 11/15/18 11/16/18 Range/Units 14:01 19:35 06:40 WBC 11.8 H (3.8-10.6) k/uL RBC 4.20 L (4.30-5.90) m/uL Hgb 12.6 L D (13.0-17.5) gm/dL Hct 37.8 L (39.0-53.0) % Neutrophils # (Manual) 11.40 H (1.3-7.7) k/uL Lymphocytes # (Manual) 0.12 L (1.0-4.8) k/uL Metamyelocytes # (Man) 0.12 H (0) k/uL ABG pH (7.35-7.45) ABG pCO2 (35-45) mmHg ABG pO2 (83-108) mmHg ABG HCO3 (21-25) mmol/L ABG Total CO2 (19-24) mmol/L Sodium (137-145) mmol/L Carbon Dioxide (22-30) mmol/L BUN (9-20) mg/dL Plasma Lactic Acid Jules 3.9 H* 4.5 H* (0.7-2.0) mmol/L Calcium (8.4-10.2) mg/dL AST (17-59) U/L Alkaline Phosphatase (38-126) U/L Total Protein (6.3-8.2) g/dL Albumin (3.5-5.0) g/dL Urine Protein (Negative) Urine Blood (Negative) Amorphous Sediment (None) /hpf Urine Bacteria (None) /hpf Urine Mucus (None) /hpf 11/16/18 11/16/18 11/16/18 Range/Units 06:40 08:44 10:05 WBC 12.6 H (3.8-10.6) k/uL RBC 4.19 L (4.30-5.90) m/uL Hgb 12.6 L (13.0-17.5) gm/dL Hct 38.9 L (39.0-53.0) % Neutrophils # (Manual) 12.00 H (1.3-7.7) k/uL Lymphocytes # (Manual) 0.25 L (1.0-4.8) k/uL Metamyelocytes # (Man) (0) k/uL ABG pH 7.30 L (7.35-7.45) ABG pCO2 25 L (35-45) mmHg ABG pO2 78 L (83-108) mmHg ABG HCO3 12 L (21-25) mmol/L ABG Total CO2 13 L (19-24) mmol/L Sodium 131 L (137-145) mmol/L Carbon Dioxide 11 L (22-30) mmol/L BUN 30 H (9-20) mg/dL Plasma Lactic Acid Jules (0.7-2.0) mmol/L Calcium 7.5 L (8.4-10.2) mg/dL AST 83 H (17-59) U/L Alkaline Phosphatase 37 L (38-126) U/L Total Protein 5.2 L (6.3-8.2) g/dL Albumin 2.8 L (3.5-5.0) g/dL Urine Protein (Negative) Urine Blood (Negative) Amorphous Sediment (None) /hpf Urine Bacteria (None) /hpf Urine Mucus (None) /hpf 11/16/18 Range/Units 12:00 WBC (3.8-10.6) k/uL RBC (4.30-5.90) m/uL Hgb (13.0-17.5) gm/dL Hct (39.0-53.0) % Neutrophils # (Manual) (1.3-7.7) k/uL Lymphocytes # (Manual) (1.0-4.8) k/uL Metamyelocytes # (Man) (0) k/uL ABG pH (7.35-7.45) ABG pCO2 (35-45) mmHg ABG pO2 (83-108) mmHg ABG HCO3 (21-25) mmol/L ABG Total CO2 (19-24) mmol/L Sodium (137-145) mmol/L Carbon Dioxide (22-30) mmol/L BUN (9-20) mg/dL Plasma Lactic Acid Jules (0.7-2.0) mmol/L Calcium (8.4-10.2) mg/dL AST (17-59) U/L Alkaline Phosphatase (38-126) U/L Total Protein (6.3-8.2) g/dL Albumin (3.5-5.0) g/dL Urine Protein Trace H (Negative) Urine Blood Small H (Negative) Amorphous Sediment Rare H (None) /hpf Urine Bacteria Rare H (None) /hpf Urine Mucus Rare H (None) /hpf Microbiology - Last 24 Hours (Table) 11/15/18 09:34 Blood Culture - Preliminary Blood No Growth after 24 hours 11/16/18 05:30 Urine Culture - Preliminary Urine,Catheterized 11/15/18 22:50 Stool Culture - Preliminary Stool Diabetes panel 11/16/18 Range/Units 06:40 Sodium 131 L (137-145) mmol/L Potassium 3.9 (3.5-5.1) mmol/L Chloride 105 (98-107) mmol/L Carbon Dioxide 11 L (22-30) mmol/L BUN 30 H (9-20) mg/dL Creatinine 1.20 (0.66-1.25) mg/dL Glucose 90 (74-99) mg/dL Calcium 7.5 L (8.4-10.2) mg/dL AST 83 H (17-59) U/L ALT 42 (21-72) U/L Alkaline Phosphatase 37 L (38-126) U/L Total Protein 5.2 L (6.3-8.2) g/dL Albumin 2.8 L (3.5-5.0) g/dL Calcium panel 11/16/18 Range/Units 06:40 Calcium 7.5 L (8.4-10.2) mg/dL Albumin 2.8 L (3.5-5.0) g/dL Pituitary panel 11/16/18 Range/Units 06:40 Sodium 131 L (137-145) mmol/L Potassium 3.9 (3.5-5.1) mmol/L Chloride 105 (98-107) mmol/L Carbon Dioxide 11 L (22-30) mmol/L BUN 30 H (9-20) mg/dL Creatinine 1.20 (0.66-1.25) mg/dL Glucose 90 (74-99) mg/dL Calcium 7.5 L (8.4-10.2) mg/dL Adrenal panel 11/16/18 Range/Units 06:40 Sodium 131 L (137-145) mmol/L Potassium 3.9 (3.5-5.1) mmol/L Chloride 105 (98-107) mmol/L Carbon Dioxide 11 L (22-30) mmol/L BUN 30 H (9-20) mg/dL Creatinine 1.20 (0.66-1.25) mg/dL Glucose 90 (74-99) mg/dL Calcium 7.5 L (8.4-10.2) mg/dL Total Bilirubin 0.3 (0.2-1.3) mg/dL AST 83 H (17-59) U/L ALT 42 (21-72) U/L Alkaline Phosphatase 37 L (38-126) U/L Total Protein 5.2 L (6.3-8.2) g/dL Albumin 2.8 L (3.5-5.0) g/dL <Arian Ruffin - Last Filed: 11/16/18 17:08> History of Present Illness History of present illness: As above. Patient presented with shortness of breath and suspected COPD with CHF exacerbation. Patient however describes episodes of vomiting at home and some loose stools. No vomiting today. Last bowel movement yesterday evening. This was reportedly loose. CAT scan was reviewed. No transition point seen on CAT scan to suggest definite bowel obstruction. Patient was acidotic on arrival and remains acidotic at this time. Some bandemia on recent CBC. Patient denies pain when asked. He does have mild upper abdominal tenderness. We'll repeat abdominal x-rays tomorrow. Check stool studies if diarrhea persists. Ice chips only for now. Continue IV hydration. Will follow. Surgical - Exam Vital Signs Temp Pulse Resp BP Pulse Ox 97.3 F L 111 H 32 H 123/75 93 L 11/15/18 08:55 11/15/18 08:55 11/15/18 08:55 11/15/18 08:55 11/15/18 08:55 Results - Labs 11/16/18 08:44 11/16/18 06:40 Abnormal Lab Results - Last 24 Hours (Table) 11/15/18 11/16/18 11/16/18 Range/Units 19:35 06:40 06:40 WBC 11.8 H (3.8-10.6) k/uL RBC 4.20 L (4.30-5.90) m/uL Hgb 12.6 L D (13.0-17.5) gm/dL Hct 37.8 L (39.0-53.0) % Neutrophils # (Manual) 11.40 H (1.3-7.7) k/uL Lymphocytes # (Manual) 0.12 L (1.0-4.8) k/uL Metamyelocytes # (Man) 0.12 H (0) k/uL ABG pH (7.35-7.45) ABG pCO2 (35-45) mmHg ABG pO2 (83-108) mmHg ABG HCO3 (21-25) mmol/L ABG Total CO2 (19-24) mmol/L Sodium 131 L (137-145) mmol/L Carbon Dioxide 11 L (22-30) mmol/L BUN 30 H (9-20) mg/dL Plasma Lactic Acid Jules 4.5 H* (0.7-2.0) mmol/L Calcium 7.5 L (8.4-10.2) mg/dL AST 83 H (17-59) U/L Alkaline Phosphatase 37 L (38-126) U/L Total Protein 5.2 L (6.3-8.2) g/dL Albumin 2.8 L (3.5-5.0) g/dL Urine Protein (Negative) Urine Blood (Negative) Amorphous Sediment (None) /hpf Urine Bacteria (None) /hpf Urine Mucus (None) /hpf 11/16/18 11/16/18 11/16/18 Range/Units 08:44 10:05 12:00 WBC 12.6 H (3.8-10.6) k/uL RBC 4.19 L (4.30-5.90) m/uL Hgb 12.6 L (13.0-17.5) gm/dL Hct 38.9 L (39.0-53.0) % Neutrophils # (Manual) 12.00 H (1.3-7.7) k/uL Lymphocytes # (Manual) 0.25 L (1.0-4.8) k/uL Metamyelocytes # (Man) (0) k/uL ABG pH 7.30 L (7.35-7.45) ABG pCO2 25 L (35-45) mmHg ABG pO2 78 L (83-108) mmHg ABG HCO3 12 L (21-25) mmol/L ABG Total CO2 13 L (19-24) mmol/L Sodium (137-145) mmol/L Carbon Dioxide (22-30) mmol/L BUN (9-20) mg/dL Plasma Lactic Acid Jules (0.7-2.0) mmol/L Calcium (8.4-10.2) mg/dL AST (17-59) U/L Alkaline Phosphatase (38-126) U/L Total Protein (6.3-8.2) g/dL Albumin (3.5-5.0) g/dL Urine Protein Trace H (Negative) Urine Blood Small H (Negative) Amorphous Sediment Rare H (None) /hpf Urine Bacteria Rare H (None) /hpf Urine Mucus Rare H (None) /hpf Microbiology - Last 24 Hours (Table) 11/15/18 09:34 Blood Culture - Preliminary Blood No Growth after 24 hours 11/16/18 05:30 Urine Culture - Preliminary Urine,Catheterized 11/15/18 22:50 Stool Culture - Preliminary Stool Diabetes panel 11/16/18 Range/Units 06:40 Sodium 131 L (137-145) mmol/L Potassium 3.9 (3.5-5.1) mmol/L Chloride 105 (98-107) mmol/L Carbon Dioxide 11 L (22-30) mmol/L BUN 30 H (9-20) mg/dL Creatinine 1.20 (0.66-1.25) mg/dL Glucose 90 (74-99) mg/dL Calcium 7.5 L (8.4-10.2) mg/dL AST 83 H (17-59) U/L ALT 42 (21-72) U/L Alkaline Phosphatase 37 L (38-126) U/L Total Protein 5.2 L (6.3-8.2) g/dL Albumin 2.8 L (3.5-5.0) g/dL Calcium panel 11/16/18 Range/Units 06:40 Calcium 7.5 L (8.4-10.2) mg/dL Albumin 2.8 L (3.5-5.0) g/dL Pituitary panel 11/16/18 Range/Units 06:40 Sodium 131 L (137-145) mmol/L Potassium 3.9 (3.5-5.1) mmol/L Chloride 105 (98-107) mmol/L Carbon Dioxide 11 L (22-30) mmol/L BUN 30 H (9-20) mg/dL Creatinine 1.20 (0.66-1.25) mg/dL Glucose 90 (74-99) mg/dL Calcium 7.5 L (8.4-10.2) mg/dL Adrenal panel 11/16/18 Range/Units 06:40 Sodium 131 L (137-145) mmol/L Potassium 3.9 (3.5-5.1) mmol/L Chloride 105 (98-107) mmol/L Carbon Dioxide 11 L (22-30) mmol/L BUN 30 H (9-20) mg/dL Creatinine 1.20 (0.66-1.25) mg/dL Glucose 90 (74-99) mg/dL Calcium 7.5 L (8.4-10.2) mg/dL Total Bilirubin 0.3 (0.2-1.3) mg/dL AST 83 H (17-59) U/L ALT 42 (21-72) U/L Alkaline Phosphatase 37 L (38-126) U/L Total Protein 5.2 L (6.3-8.2) g/dL Albumin 2.8 L (3.5-5.0) g/dL
--- NOTE | 2018-11-16 14:27 | P.PN ---
Subjective Progress Note Date: 11/16/18 Principal diagnosis: This is a 58-year-old male who was recently admitted for shortness of breath with a history of COPD, heart failure, and sleep apnea as he uses a CPAP at night. Patient has been off the BiPAP and is currently being closely monitored in the ICU. Patient's lactic acid level was elevated and is currently 1.9. Patient was severely dehydrated and receiving IV fluids of which he is at 100 miles an hour of normal saline at this time. Patient was lying in bed in no acute distress and maintaining oxygen saturation on 2 L of oxygen via nasal cannula. Patient is lethargic but easily arousable. Patient denies any shortness of breath, chest pain, or palpitations at this time. Patient is afebrile. Patient was having some mild diffuse abdominal pain. Patient had an abdominal CT done today per Dr. Cintron which showed overall nonspecific bowel gas pattern. Alternating areas of dilated and non-dilated bowel suggest dynamic ileus, early or mild obstruction felt less likely. Patient is currently NPO at this time. Objective - Vital Signs Vital signs: Vital Signs Temp 98.1 F 11/16/18 12:00 Pulse 101 H 11/16/18 13:00 Resp 18 11/16/18 13:00 BP 92/63 11/16/18 13:00 Pulse Ox 94 L 11/16/18 13:00 Intake & Output 11/15/18 11/16/18 11/16/18 18:59 06:59 18:59 Intake Total 3550 2250 1240 Output Total 600 1235 1375 Balance 2950 1015 -135 Weight 90.718 kg 93.4 kg Intake: IV 2900 2050 1000 0.9 2900 Sodium Chloride 0.9% 1, 2050 950 000 ml @ 75 mls/hr IV . [id number] [facility] Rx#:[id number] cefTRIAXone 1 gm In 50 Sodium Chloride 0.9% 50 ml @ 100 mls/hr IVPB Q24HR [facility] Rx#:[id number] Intake, IV Titration 650 100 Amount Sodium Chloride 0.9% 1, 600 100 000 ml @ 75 mls/hr IV . [id number] [facility] Rx#:[id number] cefTRIAXone 1 gm In 50 Sodium Chloride 0.9% 50 ml @ 100 mls/hr IVPB Q24HR [facility] Rx#:[id number] Oral 100 240 Output: Urine 600 1235 1375 Other: Voiding Method Indwelling Catheter Indwelling Catheter Indwelling Catheter - Exam Gen: This is a 58 year old male that appears in no acute distress and is lying in bed. Vital signs are stable. HEENT: Head is atraumatic, normocephalic. Pupils equal, round. Sclerae is anicteric. NECK: Supple. No JVD. No lymphadenopathy. No thyromegaly. LUNGS: Lung sounds diminished bilaterally with no wheezes or rhonchi noted. No intercostal retractions. HEART: Regular rate and rhythm. No murmur. S1 and S2 are normal ABDOMEN: Soft. Bowel sounds are present. Obese. Mild tenderness upon palpation. EXTREMITIES: No pedal edema. No calf tenderness. NEUROLOGICAL: Patient is awake, alert and oriented x3. Cranial nerves 2 through 12 are grossly intact. - Labs CBC & Chem 7: 11/16/18 08:44 11/16/18 06:40 Labs: Abnormal Lab Results - Last 24 Hours (Table) 11/15/18 11/15/18 11/16/18 Range/Units 14:01 19:35 06:40 WBC 11.8 H (3.8-10.6) k/uL RBC 4.20 L (4.30-5.90) m/uL Hgb 12.6 L D (13.0-17.5) gm/dL Hct 37.8 L (39.0-53.0) % Neutrophils # (Manual) 11.40 H (1.3-7.7) k/uL Lymphocytes # (Manual) 0.12 L (1.0-4.8) k/uL Metamyelocytes # (Man) 0.12 H (0) k/uL ABG pH (7.35-7.45) ABG pCO2 (35-45) mmHg ABG pO2 (83-108) mmHg ABG HCO3 (21-25) mmol/L ABG Total CO2 (19-24) mmol/L Sodium (137-145) mmol/L Carbon Dioxide (22-30) mmol/L BUN (9-20) mg/dL Plasma Lactic Acid Jules 3.9 H* 4.5 H* (0.7-2.0) mmol/L Calcium (8.4-10.2) mg/dL AST (17-59) U/L Alkaline Phosphatase (38-126) U/L Total Protein (6.3-8.2) g/dL Albumin (3.5-5.0) g/dL 11/16/18 11/16/18 11/16/18 Range/Units 06:40 08:44 10:05 WBC 12.6 H (3.8-10.6) k/uL RBC 4.19 L (4.30-5.90) m/uL Hgb 12.6 L (13.0-17.5) gm/dL Hct 38.9 L (39.0-53.0) % Neutrophils # (Manual) 12.00 H (1.3-7.7) k/uL Lymphocytes # (Manual) 0.25 L (1.0-4.8) k/uL Metamyelocytes # (Man) (0) k/uL ABG pH 7.30 L (7.35-7.45) ABG pCO2 25 L (35-45) mmHg ABG pO2 78 L (83-108) mmHg ABG HCO3 12 L (21-25) mmol/L ABG Total CO2 13 L (19-24) mmol/L Sodium 131 L (137-145) mmol/L Carbon Dioxide 11 L (22-30) mmol/L BUN 30 H (9-20) mg/dL Plasma Lactic Acid Jules (0.7-2.0) mmol/L Calcium 7.5 L (8.4-10.2) mg/dL AST 83 H (17-59) U/L Alkaline Phosphatase 37 L (38-126) U/L Total Protein 5.2 L (6.3-8.2) g/dL Albumin 2.8 L (3.5-5.0) g/dL Microbiology - Last 24 Hours (Table) 11/15/18 09:34 Blood Culture - Preliminary Blood No Growth after 24 hours 11/16/18 05:30 Urine Culture - Preliminary Urine,Catheterized 11/15/18 22:50 Stool Culture - Preliminary Stool Assessment and Plan Assessment: Acute hypercapnic respiratory failure secondary to COPD exacerbation. Receiving inhalation treatments and systemic steroids. Still remains off the BiPAP with the exception of the CPAP use at night for his sleep apnea. Oxygen saturation is being maintained with 2 L via nasal cannula. Will continue to monitor closely. Acute renal failure: Prerenal azotemia severe intravascular depletion probably due to diuretic therapy and lisinopril. Those medications will be held at this time. Congestive heart failure with chronic systolic dysfunction and a mildly decreased ejection fraction of 45%. Patient was volume depleted and was given IV fluid resuscitation. Willl continue to monitor his respiratory status and pulmonary edema status. Chest x-ray this morning reveals overall stable findings, chronic emphysematous and parenchymal fibrotic changes with persistent bilateral lower lung edema and/or infiltrates. IV hydration has been decreased to 100 mLs.hr of normal saline. Hypertension and patient was hypotensive yesterday. Currently holding hypertensive meds with the exception of metoprolol. Sleep apnea, uses a CPAP machine at home which he will continue to do so here Hypovolemia with hyponatremia: Improving will continue to monitor labs and vitals closely Lactic acidosis: Secondary to intravascular volume depletion with severe dehydr ation and decreased organ perfusion. Improved current lactic acid is 1.9 Recommendations and discussion: Recommend to continue current medication and symptomatic management. will continue with breathing treatments and IV steroids at this time. Currently on IV antibiotics. Will continue to monitor closely. Prognosis is guarded. Further recommendations to follow. Awaiting surgery consult for above-mentioned CT abdomen results.
--- NOTE | 2018-11-16 15:32 | P.CRDCN ---
History of Present Illness History of present illness: This is Genet Cross PA-C dictating a consult on this patient The patient was interviewed and examined by me as well as by Dr. Ruggiero Case discussed with Dr. Ruggiero and he agrees with the plan of care IMPRESSION / ASSESSMENT: History of systolic heart failure with reduced LV function, EF 45-50% in 2016, appears stable from a heart failure standpoint Acute respiratory failure secondary to COPD exacerbation History of Hypertension, patient has been hypotensive Dyslipidemia PLAN: Order 2-D echo and Doppler to assess cardiac structure and function Stop Toprol-XL due to hypotension, start metoprolol tartrate 25 mg twice a day, monitor for hypotension cautious IV fluid hydration Continue pravastatin HPI Patient is a 58-year-old male with a history of COPD, CHF, hypertension, dyslipidemia, SHARI who presented to the emergency department with complaints of shortness of breath, nausea/vomiting, and cough. States he had been nauseous and vomiting for the last few days. Had one episode of diarrhea. He has also been coughing and more short of breath for the last day or 2. He was placed on BiPAP and admitted for treatment of COPD exacerbation. Patient seen and examined resting comfortably in bed. States his breathing has improved. He is no longer nauseous. Denies any chest pain, lightheadedness, dizziness, palpitations, syncope, orthopnea, PND, or lower extremity edema. States he is able to sleep flat without any difficulties breathing. ROS: No fevers, chills or rigors, Positive for cough Positive for nausea vomiting and diarrhea no hematuria, dysuria, no musculoskeletal complaints, no strokes or seizures, no skin lesions. EXAMINATION: Temperature 98.1F, heart rate 101, respirations 19, blood pressure 83/60, oxygen saturation 95% on nasal 2 L cannula Patient seen and examined resting comfortably in bed, does not appear to be in any distress Mucous membranes dry Lungs mildly diminished but clear to auscultation bilaterally Heart is regular, slightly tachycardic, normal S1 and S2, no murmurs appreciated No elevated JVD No lower extremity edema REVIEW OF LABS, ECG & MEDICAL DATA Chest x-ray showed mild bibasilar atelectasis Initial EKG revealed sinus tachycardia with PVCs, no ST changes noted Chest CT shows no clear-cut evidence for pulmonary embolism, early pulmonary fibrosis, emphysema, ascending aorta is 3.2 cm WBC 11.8, hemoglobin 12.6, sodium 131, potassium 3.9, BUN 30, creatinine 1.2, troponin normal, CPK 308 Last echocardiogram in 2015 revealed normal LV size borderline concentric LVH, systolic function mildly impaired EF 45-50% Past Medical History Past Medical History: Heart Failure, COPD, Hyperlipidemia, Hypertension, Skin Disorder, Sleep Apnea/CPAP/BIPAP Additional Past Medical History / Comment(s): SHARI with CPap, anemia, psoriasis, past bilateral leg cellulitis, diverticular disease, sinus problems. History of Any Multi-Drug Resistant Organisms: None Reported Past Surgical History: Cholecystectomy Additional Past Surgical History / Comment(s): colonoscopy Past Anesthesia/Blood Transfusion Reactions: No Reported Reaction Additional Past Anesthesia/Blood Transfusion Reaction / Comment(s): never had anesthesia Past Psychological History: No Psychological Hx Reported Additional Psychological History / Comment(s): Pt resides with his brother. He uses no assistive devices. He has never driven, family or neighbors take him to appts. He manages his own medications. Smoking Status: Former smoker Past Alcohol Use History: None Reported Additional Past Alcohol Use History / Comment(s): Pt started smoking in 1971 and quit in 2006. Past Drug Use History: None Reported - Past Family History Mother Family Medical History: Myocardial Infarction (AK) Additional Family Medical History / Comment(s): Pt does not know at what age his mother had a AK Father Family Medical History: Myocardial Infarction (AK) Additional Family Medical History / Comment(s): 3 MIs. Pt does not know at what age father had first AK. Sister(s) Family Medical History: Cancer Additional Family Medical History / Comment(s): lung CA Medications and Allergies Home Medications Medication Instructions Recorded Confirmed Type Aspirin 81 mg PO DAILY #0 chew 02/27/16 11/15/18 Rx Albuterol Inhaler [Ventolin Hfa 2 puff INHALATION RT-Q6H PRN 11/15/18 11/15/18 History Inhaler] Folic Acid 1 mg PO DAILY 11/15/18 11/15/18 History Furosemide [Lasix] 40 mg PO DAILY 11/15/18 11/15/18 History Losartan [Cozaar] 25 mg PO DAILY 11/15/18 11/15/18 History Metoprolol Succinate (ER) [Toprol 50 mg PO DAILY 11/15/18 11/15/18 History XL] Multivitamins, Thera [Multivitamin 1 tab PO DAILY 11/15/18 11/15/18 History (formulary)] Pravastatin Sodium [Pravachol] 40 mg PO HS 11/15/18 11/15/18 History QUEtiapine XR [SEROquel XR] 50 mg PO HS 11/15/18 11/15/18 History Spironolactone 50 mg PO DAILY 11/15/18 11/15/18 History Allergies Allergy/AdvReac Type Severity Reaction Status Date / Time No Known Allergies Allergy Verified 11/15/18 11:31 Physical Exam Vitals: Vital Signs Temp Pulse Resp BP Pulse Ox 11/16/18 07:12 104 H 11/16/18 07:02 100 11/16/18 07:01 100 11/16/18 07:00 106 H 14 96/57 97 11/16/18 06:52 104 H 11/16/18 06:00 103 H 18 84/61 92 L 11/16/18 05:00 106 H 16 96/63 95 11/16/18 04:00 98 F 105 H 16 93/60 94 L 11/16/18 03:00 110 H 18 91/55 95 11/16/18 02:00 104 H 18 86/50 94 L 11/16/18 01:00 113 H 25 H 87/61 92 L 11/16/18 00:00 98.2 F 108 H 12 94/58 94 L 11/15/18 23:00 109 H 22 86/57 93 L 11/15/18 22:00 112 H 24 88/53 90 L 11/15/18 21:00 106 H 22 93/56 93 L 11/15/18 20:00 109 H 25 H 71/46 92 L 11/15/18 19:49 110 H 11/15/18 19:44 105 H 11/15/18 19:32 106 H 11/15/18 19:30 107 H 18 87/48 93 L 11/15/18 19:00 97.6 F 101 H 18 85/58 92 L 11/15/18 18:30 100 23 87/66 95 11/15/18 18:00 101 H 17 95/62 93 L 11/15/18 17:30 102 H 19 83/67 92 L 11/15/18 17:00 96 15 89/60 96 11/15/18 16:30 102 H 16 116/95 95 11/15/18 16:00 97.2 F L 99 25 H 82/63 92 L 11/15/18 15:30 98 33 H 81/58 91 L 11/15/18 15:28 97 11/15/18 15:20 94 11/15/18 15:00 101 H 29 H 74/58 96 11/15/18 14:30 100 40 H 85/59 91 L 11/15/18 12:49 97.6 F 115 H 26 H 11/15/18 12:41 110 H 26 H 97/68 93 L 11/15/18 12:10 111 H 28 H 75/34 94 L 11/15/18 09:21 35 H 11/15/18 09:14 110 H 11/15/18 08:56 100 11/15/18 08:55 97.3 F L 111 H 32 H 123/75 93 L Intake and Output 11/15/18 11/16/18 11/16/18 22:59 06:59 14:59 Intake Total 1200 1700 200 Output Total 960 875 250 Balance 240 825 -50 Intake: IV 450 1600 200 Sodium Chloride 0.9% 1, 450 1600 200 000 ml @ 200 mls/hr IV . Q5H [facility] Rx#:[id number] Intake, IV Titration 750 Amount Sodium Chloride 0.9% 1, 700 000 ml @ 200 mls/hr IV . Q5H [facility] Rx#:[id number] cefTRIAXone 1 gm In 50 Sodium Chloride 0.9% 50 ml @ 100 mls/hr IVPB Q24HR [facility] Rx#:[id number] Oral 100 Output: Urine 960 875 250 Other: Voiding Method Indwelling Catheter Indwelling Catheter Weight 93.4 kg Results 11/16/18 08:44 11/16/18 06:40 Cardiac Enzymes 11/15/18 11/15/18 11/16/18 Range/Units 09:11 09:11 06:40 AST 55 83 H (17-59) U/L Troponin I <0.012 (0.000-0.034) ng/mL Coagulation 11/15/18 Range/Units 10:10 PT 10.0 (9.0-12.0) sec APTT 23.8 (22.0-30.0) sec CBC 11/15/18 11/16/18 Range/Units 09:11 06:40 WBC 13.4 H 11.8 H (3.8-10.6) k/uL RBC 5.77 4.20 L (4.30-5.90) m/uL Hgb 17.2 12.6 L D (13.0-17.5) gm/dL Hct 52.9 37.8 L (39.0-53.0) % Plt Count 416 237 (150-450) k/uL Comprehensive Metabolic Panel 11/15/18 11/16/18 Range/Units 09:11 06:40 Sodium 133 L 131 L (137-145) mmol/L Potassium 4.0 3.9 (3.5-5.1) mmol/L Chloride 100 105 (98-107) mmol/L Carbon Dioxide 10 L 11 L (22-30) mmol/L BUN 22 H 30 H (9-20) mg/dL Creatinine 1.51 H 1.20 (0.66-1.25) mg/dL Glucose 145 H 90 (74-99) mg/dL Calcium 9.6 7.5 L (8.4-10.2) mg/dL AST 55 83 H (17-59) U/L ALT 33 42 (21-72) U/L Alkaline Phosphatase 84 37 L (38-126) U/L Total Protein 8.1 5.2 L (6.3-8.2) g/dL Albumin 4.8 2.8 L (3.5-5.0) g/dL Current Medications Generic Name Dose Route Start Last Admin Trade Name Freq PRN Reason Stop Dose Admin Acetaminophen 650 mg 11/15/18 22:48 11/16/18 04:50 Tylenol Tab PO 650 mg Q6HR PRN Administration MILD Pain Albuterol/Ipratropium 3 ml 11/15/18 12:00 11/16/18 06:52 Duoneb 0.5 Mg-3 Mg/3 Ml Soln INHALATION 3 ml RT-QID [facility] Administration Aspirin 81 mg 11/16/18 09:00 Aspirin PO DAILY [facility] Budesonide 1 mg 11/15/18 20:00 11/16/18 06:52 Pulmicort INHALATION 1 mg RT-BID [facility] Administration Famotidine 20 mg 11/15/18 21:00 11/15/18 22:13 Pepcid PO 20 mg BID [facility] Administration Folic Acid 1 mg 11/16/18 09:00 Folic Acid PO DAILY [facility] Formoterol Fumarate 20 mcg 11/15/18 20:00 11/16/18 06:52 Perforomist INHALATION 20 mcg RT-BID [facility] Administration Heparin Sodium (Porcine) 5,000 unit 11/15/18 16:00 11/16/18 00:15 Heparin SQ 5,000 unit Q8HR [facility] Administration Sodium Chloride 1,000 mls @ 200 mls/hr 11/15/18 12:15 11/16/18 03:32 Saline 0.9% IV 200 mls/hr .Q5H [facility] Administration Ceftriaxone Sodium 1 gm/ 50 mls @ 100 mls/hr 11/15/18 14:45 11/15/18 15:56 Sodium Chloride IVPB 100 mls/hr Q24HR [facility] Administration Methylprednisolone Sodium Succinate 40 mg 11/15/18 18:00 11/16/18 05:27 Solu-Medrol IV 40 mg Q6HR [facility] Administration Metoprolol Succinate 50 mg 11/16/18 09:00 Toprol Xl PO DAILY [facility] Pravastatin Sodium 40 mg 11/15/18 21:00 11/15/18 22:12 Pravachol PO 40 mg HS [facility] Administration Quetiapine Fumarate 25 mg 11/15/18 21:00 11/15/18 22:12 Seroquel PO 25 mg BID [facility] Administration Intake and Output 11/15/18 11/16/18 11/16/18 22:59 06:59 14:59 Intake Total 1200 1700 200 Output Total 960 875 250 Balance 240 825 -50 Intake: IV 450 1600 200 Sodium Chloride 0.9% 1, 450 1600 200 000 ml @ 200 mls/hr IV . Q5H [facility] Rx#:[id number] Intake, IV Titration 750 Amount Sodium Chloride 0.9% 1, 700 000 ml @ 200 mls/hr IV . Q5H [facility] Rx#:[id number] cefTRIAXone 1 gm In 50 Sodium Chloride 0.9% 50 ml @ 100 mls/hr IVPB Q24HR [facility] Rx#:[id number] Oral 100 Output: Urine 960 875 250 Other: Voiding Method Indwelling Catheter Indwelling Catheter Weight 93.4 kg 11/16/18 06:40 11/16/18 06:40
[2018-11-16] MEDS: PRAVASTATIN SODIUM 40 MG TAB PO SCH (21:16)
[2018-11-17] MEDS: methylPREDNISolone SOD SUCCI 40 MG/ML 1 ML VIAL IV SCH ×3 (00:57→21:14)
[2018-11-17] MEDS: HEPARIN SODIUM,PORCINE 5,000 UNIT/ML 1 ML VIAL SQ SCH ×3 (00:57→18:00)
[2018-11-17] MEDS: SODIUM CHLORIDE 0.9% 1,000 ML IV SCH ×2 (05:29→17:24)
[2018-11-17 05:40] LABS: Basophils % (A) 0 %; Eosinophils % (A) 0 %; HCT 34.1 % (39.0-53.0); HGB 11.5 gm/dL (13.0-17.5); Lymphocytes # (A) 0.4 k/uL (1.0-4.8); Lymphocytes % (A) 3 %; MCH 30.2 pg (25.0-35.0); MCHC 33.7 g/dL (31.0-37.0); MCV 89.7 fL (80.0-100.0); Mean Platelet Volume 7.6; Monocytes # (A) 0.4 k/uL (0-1.0); Monocytes % (A) 4 %; Neutrophils % (A) 92 %; Platelet Count 217 k/uL (150-450); RDW 14.8 % (11.5-15.5)
[2018-11-17 06:00] LABS: ALT 40 U/L (21-72); AST 57 U/L (17-59); African American GFR (CKD) >90 (>60 ml/min/1.73 sqM); Albumin 2.7 g/dL (3.5-5.0); Alkaline Phosphatase 41 U/L (38-126); Anion Gap 11 mmol/L; Blood Urea Nitrogen 30 mg/dL (9-20); Calcium 7.7 mg/dL (8.4-10.2); Carbon Dioxide 14 mmol/L (22-30); Chloride 109 mmol/L (98-107); Glucose 118 mg/dL (74-99); Sodium 134 mmol/L (137-145); Total Bilirubin 0.2 mg/dL (0.2-1.3); Total Protein 5.2 g/dL (6.3-8.2)
[2018-11-17] MEDS: BUDESONIDE 1 MG/2 ML NEBU INHALATION SCH ×2 (07:08→19:32)
[2018-11-17] MEDS: IPRATROPIUM-ALBUTEROL 3 ML NEB INHALATION SCH ×4 (07:08→19:32)
[2018-11-17] MEDS: FORMOTEROL FUMARATE 20 MCG/2 ML NEBU INHALATION SCH ×2 (07:08→19:32)
--- NOTE | 2018-11-17 08:03 | XR ---
EXAMINATION TYPE: XR abdomen 2V DATE OF EXAM: 11/17/2018 HISTORY: Pain. Technique: 3 views of the abdomen are submitted. Comparison: 11/16/2018 Findings: There is no convincing evidence of pneumoperitoneum. Persistent distention of small and large bowel slightly improved. Findings are felt to reflect ileus. No mass effects seen. No calculi noted. Cholecystectomy clips identified. IMPRESSION: 1. Findings suggest improving ileus.
[2018-11-17] MEDS: FAMOTIDINE 20 MG TAB PO SCH ×2 (08:20→21:14)
[2018-11-17] MEDS: METOPROLOL TARTRATE 25 MG TAB PO SCH ×2 (08:20→21:14)
[2018-11-17] MEDS: ASPIRIN 81 MG PO SCH (08:20)
[2018-11-17] MEDS: QUEtiapine 25 MG TAB PO SCH ×2 (08:20→21:14)
[2018-11-17] MEDS: FOLIC ACID 1 MG TAB PO SCH (08:20)
[2018-11-17] MEDS: ACETAMINOPHEN TAB 325 MG TAB PO PRN (10:04)
--- NOTE | 2018-11-17 10:29 | P.PN ---
Subjective Progress Note Date: 11/17/18 Principal diagnosis: Shortness of breath, anion gap metabolic acidosis rule out sepsis On 11/16/2018 patient was seen again in follow-up in the intensive care unit, he is lethargic, but arousable, currently on 2 L of oxygen with a pulse ox of 92- 94%, still slightly tachycardic, in sinus mechanism with a rate of 115 BPM, he is afebrile, blood pressures are somewhat marginal, with the systolic in the 90s and diastolic in the 50s. Patient has been fluid resuscitated with liters of normal saline, and patient had received normal saline at a rate of 200 ML per hour for last 24 hours. His lactic acid did come down to 1.9 on today's labs. We blood cell count is 12.6, hemoglobin is 12.6, as been nearly 5 g drop in hemoglobin since yesterday, likely hemodilution related. Serum sodium is 131, potassium is 3.9, chloride is 105, CO2 is 11, anion gap is down to 15, BUN is 30, creatinine is 1.20. Patient is nauseous, has had limited oral intake, no diarrhea, abdomen is distended but nontender, soft. Culture is negative thus far, blood culture is pending, C. diff as been ordered, has not been collected, urine culture is pending. Lung sounds are diminished, no significant rhonchi or wheezing, patient is on IV steroids, breathing treatments, empiric antibiotics in the form of Rocephin. On 11/17/2018 patient is seen in follow-up in the intensive care unit, she is much more awake and alert on today's exam, on 2 L of oxygen, in no acute distress, denies shortness of breath, no chest pain, lung sounds are positive for a few bibasilar crackles, no wheezing or rhonchi, no cough or congestion. 0.9 normal saline infusing at a rate of 100 ML per hour, no other drips. No abdominal tenderness, patient states he started to pass small amount of gas, computed tomography scan of the abdomen and pelvis was completed yesterday with IV contrast showing nonspecific bowel gas pattern, showing areas of dilated and nondilated bowel suggesting dynamic ileus. Surgical services are following, and patient is being treated conservatively, patient is nothing by mouth. Abdominal x-ray shows findings suggesting improving ileus. Today's is have been reviewed, showing white blood cell count of 12.0, hemoglobin of 11.5, sodium is 134, potassium is 4.0, chloride is 109, CO2 is 14, B1 is 30, creatinine is 0.90. Urine and blood culture is pending. Abdomen is soft, nontender, no nausea today, no further vomiting, Objective - Vital Signs Vital signs: Vital Signs Temp 97.8 F 11/17/18 08:00 Pulse 95 11/17/18 10:00 Resp 20 11/17/18 10:00 BP 118/82 11/17/18 10:00 Pulse Ox 96 11/17/18 10:00 Intake & Output 11/16/18 11/17/18 11/17/18 18:59 06:59 18:59 Intake Total 1740 1200 200 Output Total 2225 1250 300 Balance -485 -50 -100 Weight 93.4 kg 91.9 kg Intake: IV 1500 1200 200 Sodium Chloride 0.9% 1, 1450 1200 200 000 ml @ 75 mls/hr IV . [id number] [facility] Rx#:[id number] cefTRIAXone 1 gm In 50 Sodium Chloride 0.9% 50 ml @ 100 mls/hr IVPB Q24HR [facility] Rx#:[id number] Oral 240 Output: Urine 2225 1250 300 Other: Voiding Method Indwelling Catheter Indwelling Catheter Indwelling Catheter - Exam GENERAL EXAM: Somewhat lethargic, but arousable, 58-year-old white male, on 2 L of oxygen comfortable in no apparent distress. HEAD: Normocephalic/atraumatic. EYES: Normal reaction of pupils, equal size. Conjunctiva pink, sclera white. NOSE: Clear with pink turbinates. THROAT: No erythema or exudates. NECK: No masses, no JVD, no thyroid enlargement, no adenopathy. CHEST: No chest wall deformity. Symmetrical expansion. LUNGS: Equal air entry with no crackles, wheeze, rhonchi or dullness. Diminished breath sounds bilaterally, with limited basilar crackles CVS: Regular rate and rhythm, normal S1 and S2, no gallops, no murmurs, no rubs ABDOMEN: Soft, nontender. No hepatosplenomegaly, normal bowel sounds, no guarding or rigidity. EXTREMITIES: No clubbing, no edema, no cyanosis, 2+ pulses and upper and lower extremities. MUSCULOSKELETAL: Muscle strength and tone normal. SPINE: No scoliosis or deformity SKIN: No rashes CENTRAL NERVOUS SYSTEM: Lethargic. No focal deficits, tone is normal in all 4 extremities. - Labs CBC & Chem 7: 11/17/18 05:28 11/17/18 05:28 Labs: Abnormal Lab Results - Last 24 Hours (Table) 11/16/18 11/16/18 11/16/18 Range/Units 06:40 08:44 12:00 WBC (3.8-10.6) k/uL RBC (4.30-5.90) m/uL Hgb (13.0-17.5) gm/dL Hct (39.0-53.0) % Neutrophils # (1.3-7.7) k/uL Neutrophils # (Manual) 11.40 H 12.00 H (1.3-7.7) k/uL Lymphocytes # (1.0-4.8) k/uL Lymphocytes # (Manual) 0.12 L 0.25 L (1.0-4.8) k/uL Metamyelocytes # (Man) 0.12 H (0) k/uL Sodium (137-145) mmol/L Chloride (98-107) mmol/L Carbon Dioxide (22-30) mmol/L BUN (9-20) mg/dL Glucose (74-99) mg/dL Calcium (8.4-10.2) mg/dL Total Protein (6.3-8.2) g/dL Albumin (3.5-5.0) g/dL Urine Protein Trace H (Negative) Urine Blood Small H (Negative) Amorphous Sediment Rare H (None) /hpf Urine Bacteria Rare H (None) /hpf Urine Mucus Rare H (None) /hpf 11/17/18 11/17/18 Range/Units 05:28 05:28 WBC 12.0 H (3.8-10.6) k/uL RBC 3.80 L (4.30-5.90) m/uL Hgb 11.5 L (13.0-17.5) gm/dL Hct 34.1 L (39.0-53.0) % Neutrophils # 11.0 H (1.3-7.7) k/uL Neutrophils # (Manual) (1.3-7.7) k/uL Lymphocytes # 0.4 L (1.0-4.8) k/uL Lymphocytes # (Manual) (1.0-4.8) k/uL Metamyelocytes # (Man) (0) k/uL Sodium 134 L (137-145) mmol/L Chloride 109 H (98-107) mmol/L Carbon Dioxide 14 L (22-30) mmol/L BUN 30 H (9-20) mg/dL Glucose 118 H (74-99) mg/dL Calcium 7.7 L (8.4-10.2) mg/dL Total Protein 5.2 L (6.3-8.2) g/dL Albumin 2.7 L (3.5-5.0) g/dL Urine Protein (Negative) Urine Blood (Negative) Amorphous Sediment (None) /hpf Urine Bacteria (None) /hpf Urine Mucus (None) /hpf Microbiology - Last 24 Hours (Table) 11/15/18 09:34 Blood Culture - Preliminary Blood No Growth after 24 hours 11/16/18 05:30 Urine Culture - Preliminary Urine,Catheterized Assessment and Plan Plan: Assessment: #1. Shortness of breath, multifactorial, related to COPD exacerbation, and sepsis. CTA chest was negative for pulmonary embolism, and some early pulmonary fibrosis changes with emphysematous blebs and blood #2. Septic shock, and the source is under investigation, chest x-ray showed chronic emphysematous and chronic parenchymal fibrotic changes, with persistent bilateral lower lung infiltrates, possibility of pneumonia is not excluded. #3. Anion gap metabolic acidosis related to sepsis, improved with fluid resuscitation #4. Diarrhea, dehydration #5. Acute kidney injury related to ATN #6. Mild hyponatremia, related to hypovolemia #7. Chronic congestive heart failure with chronic systolic dysfunction #8. COPD #9. Obstructive sleep apnea on CPAP therapy Plan: Continue current medical treatment, continue IV hydration, patient remains nothing by mouth, no abdominal pain, patient is starting to pass some gas, no nausea or vomiting, no acute issues overnight, hemodynamically stable, metabolic acidosis is improving, patient is producing large amounts of urine, more awake and alert on today's exam, denies any shortness of breath, we'll decrease the IV Solu-Medrol to 40 mg every 12 hours, continue breathing treatments, CPAP support at night. Stable for transfer out of the intensive care unit today to regular medical surgical floor. I performed a history & physical examination of the patient and discussed their management with my nurse practitioner, Chitra Juarez. I reviewed the nurse practitioner's note and agree with the documented findings and plan of care. Lung sounds are positive for diminished breath sounds. The findings and the impression was discussed with the patient. I attest to the documentation by the nurse practitioner. Time with Patient: Less than 30
[2018-11-17 11:59] LABS: Glucose,Whole Blood 129 mg/dL (75-99)
--- NOTE | 2018-11-17 13:06 | P.PN ---
<Elise Chou Alley - Last Filed: 11/17/18 13:04> Subjective Progress Note Date: 11/17/18 CHIEF COMPLAINT: Abdominal pain HISTORY OF PRESENT ILLNESS: patient seen and examined at the bedside. Patient states he is having minimal abdominal pain this morning and it is improved over all compared to yesterday. He is passing flatus. Denies bowel movement. Denies nausea or vomiting. He is tolerating ice chips. PHYSICAL EXAM: VITAL SIGNS: Reviewed. GENERAL: Well-developed in no acute distress. HEENT: No sclera icterus. Extraocular movements grossly intact. Moist buccal mucosa. Head is atraumatic, normocephalic. ABDOMEN: Soft. Nondistended. Positive bowel sounds. No signs of peritonitis NEUROLOGIC: Alert and oriented. Cranial nerves II through XII grossly intact. ASSESSMENT: 1. Abdominal pain 2. Ileus, small bowel obstruction less likely 3. History of colonoscopy in 2014 4. History of laparoscopic cholecystectomy PLAN: Begin clear liquid diet no surgical intervention recommended at this time. Continue conservative measures Nurse practitioner note has been reviewed by physician. Signing provider agrees with the documented findings, assessment, and plan of care. Objective - Vital Signs Vital signs: Vital Signs Temp 97.3 F L 11/17/18 10:47 Pulse 78 11/17/18 10:47 Resp 16 11/17/18 10:47 BP 106/63 11/17/18 10:47 Pulse Ox 96 11/17/18 10:47 Intake & Output 11/16/18 11/17/18 11/17/18 18:59 06:59 18:59 Intake Total 1740 1200 200 Output Total 2225 1250 300 Balance -485 -50 -100 Weight 93.4 kg 91.9 kg Intake: IV 1500 1200 200 Sodium Chloride 0.9% 1, 1450 1200 200 000 ml @ 75 mls/hr IV . [id number] [facility] Rx#:[id number] cefTRIAXone 1 gm In 50 Sodium Chloride 0.9% 50 ml @ 100 mls/hr IVPB Q24HR [facility] Rx#:[id number] Oral 240 Output: Urine 2225 1250 300 Other: Voiding Method Indwelling Catheter Indwelling Catheter Indwelling Catheter - Labs CBC & Chem 7: 11/17/18 05:28 11/17/18 05:28 Labs: Abnormal Lab Results - Last 24 Hours (Table) 11/16/18 11/17/1811/17/19 Range/Units 12:00 05:28 05:28 WBC 12.0 H (3.8-10.6) k/uL RBC 3.80 L (4.30-5.90) m/uL Hgb 11.5 L (13.0-17.5) gm/dL Hct 34.1 L (39.0-53.0) % Neutrophils # 11.0 H (1.3-7.7) k/uL Lymphocytes # 0.4 L (1.0-4.8) k/uL Sodium 134 L (137-145) mmol/L Chloride 109 H (98-107) mmol/L Carbon Dioxide 14 L (22-30) mmol/L BUN 30 H (9-20) mg/dL Glucose 118 H (74-99) mg/dL POC Glucose (mg/dL) (75-99) mg/dL Calcium 7.7 L (8.4-10.2) mg/dL Total Protein 5.2 L (6.3-8.2) g/dL Albumin 2.7 L (3.5-5.0) g/dL Urine Protein Trace H (Negative) Urine Blood Small H (Negative) Amorphous Sediment Rare H (None) /hpf Urine Bacteria Rare H (None) /hpf Urine Mucus Rare H (None) /hpf 11/17/18 Range/Units 11:58 WBC (3.8-10.6) k/uL RBC (4.30-5.90) m/uL Hgb (13.0-17.5) gm/dL Hct (39.0-53.0) % Neutrophils # (1.3-7.7) k/uL Lymphocytes # (1.0-4.8) k/uL Sodium (137-145) mmol/L Chloride (98-107) mmol/L Carbon Dioxide (22-30) mmol/L BUN (9-20) mg/dL Glucose (74-99) mg/dL POC Glucose (mg/dL) 129 H (75-99) mg/dL Calcium (8.4-10.2) mg/dL Total Protein (6.3-8.2) g/dL Albumin (3.5-5.0) g/dL Urine Protein (Negative) Urine Blood (Negative) Amorphous Sediment (None) /hpf Urine Bacteria (None) /hpf Urine Mucus (None) /hpf Microbiology - Last 24 Hours (Table) 11/16/18 05:30 Urine Culture - Final Urine,Catheterized 11/15/18 09:34 Blood Culture - Preliminary Blood No Growth after 48 hours <Arian Ruffin - Last Filed: 11/17/18 18:56> Subjective As above. Patient denies pain currently. No nausea or vomiting. Tolerating clear liquids. He is passing flatus. No bowel movement today. Cultures negative thus far. Labs noted. Bandemia seems to have resolved. Acidosis improved. Advance to full liquid diet for breakfast tomorrow. We'll follow. Objective - Vital Signs Vital signs: Vital Signs Temp 96.7 F L 11/17/18 14:44 Pulse 88 11/17/18 17:12 Resp 18 11/17/18 14:44 BP 106/68 11/17/18 14:44 Pulse Ox 97 11/17/18 14:44 Intake & Output 11/16/18 11/17/18 11/17/18 18:59 06:59 18:59 Intake Total 1740 1200 1400 Output Total 2225 1250 300 Balance -485 -50 1100 Weight 93.4 kg 91.9 kg Intake: IV 1500 1200 800 Sodium Chloride 0.9% 1, 1450 1200 800 000 ml @ 75 mls/hr IV . [id number] [facility] Rx#:[id number] cefTRIAXone 1 gm In 50 Sodium Chloride 0.9% 50 ml @ 100 mls/hr IVPB Q24HR [facility] Rx#:[id number] Oral 240 600 Output: Urine 2225 1250 300 Other: Voiding Method Indwelling Catheter Indwelling Catheter Indwelling Catheter - Labs CBC & Chem 7: 11/17/18 05:28 11/17/18 05:28 Labs: Abnormal Lab Results - Last 24 Hours (Table) 11/17/18 11/17/18 11/17/18 Range/Units 05:28 05:28 11:58 WBC 12.0 H (3.8-10.6) k/uL RBC 3.80 L (4.30-5.90) m/uL Hgb 11.5 L (13.0-17.5) gm/dL Hct 34.1 L (39.0-53.0) % Neutrophils # 11.0 H (1.3-7.7) k/uL Lymphocytes # 0.4 L (1.0-4.8) k/uL Sodium 134 L (137-145) mmol/L Chloride 109 H (98-107) mmol/L Carbon Dioxide 14 L (22-30) mmol/L BUN 30 H (9-20) mg/dL Glucose 118 H (74-99) mg/dL POC Glucose (mg/dL) 129 H (75-99) mg/dL Calcium 7.7 L (8.4-10.2) mg/dL Total Protein 5.2 L (6.3-8.2) g/dL Albumin 2.7 L (3.5-5.0) g/dL Microbiology - Last 24 Hours (Table) 11/16/18 05:30 Urine Culture - Final Urine,Catheterized 11/15/18 09:34 Blood Culture - Preliminary Blood No Growth after 48 hours
--- NOTE | 2018-11-17 14:49 | P.PN ---
Subjective This is Genet Cross PA-C dictating a progress note on this patient The patient was interviewed and examined by me as well as by Dr. Ruggiero Case discussed with Dr. Ruggiero and he agrees with the plan of care IMPRESSION / ASSESSMENT: Dilated cardiomyopathy, most recent echo shows EF 40%, stable Hypertension, was hypotensive on admission, blood pressure stable today COPD SHARI Dehydration PLAN: Continue metoprolol tartrate 25 mg by mouth twice a day, may switch back to metoprolol XL upon discharge Continue to maximize medical therapy for cardiomyopathy, restart home losartan 25 mg daily today, if blood pressure and renal function tolerate restart spironolactone tomorrow Continue with cautious IV hydration HPI/interval history Patient is a 58-year-old male who presented with complaints of shortness of breath, cough, nausea vomiting diarrhea. He was admitted for treatment of COPD exacerbation. He was hypotensive so we changed his Toprol-XL to metoprolol tartrate twice a day. His blood pressure has improved. There was concern for possible ileus, he is being treated conservatively. He was started on ice chips today. States he is breathing well today, denies any orthopnea or PND. Denies any chest pain, palpitations, lightheadedness, dizziness. No vomiting today. EXAMINATION Patient is afebrile, pulse 95, respirations 20, blood pressure 118/82, oxygen saturation 96% on 2 L nasal cannula Patient seen and examined sitting up in his chair, appears comfortable Mucous membranes dry Lungs mildly diminished bilaterally, but clear Heart is regular rate and rhythm, no murmurs, rubs or gallops No elevated JVD No lower extremity edema Abdomen soft REVIEW OF LABS, ECG WBC 12.0, hemoglobin 11.5, potassium 4.0, BUN 30, creatinine 0.9 from 1.2 yesterday Sinus rhythm on telemetry Recent echo in March 2018 showed normal LV size with moderately decreased function, EF 40% Objective - Vital Signs Vital signs: Vital Signs Temp 97.3 F L 11/17/18 10:47 Pulse 78 11/17/18 10:47 Resp 16 11/17/18 10:47 BP 106/63 11/17/18 10:47 Pulse Ox 96 11/17/18 10:47 Intake & Output 11/16/18 11/17/18 11/17/18 18:59 06:59 18:59 Intake Total 1740 1200 200 Output Total 2225 1250 300 Balance -485 -50 -100 Weight 93.4 kg 91.9 kg Intake: IV 1500 1200 200 Sodium Chloride 0.9% 1, 1450 1200 200 000 ml @ 75 mls/hr IV . [id number] [facility] Rx#:[id number] cefTRIAXone 1 gm In 50 Sodium Chloride 0.9% 50 ml @ 100 mls/hr IVPB Q24HR [facility] Rx#:[id number] Oral 240 Output: Urine 2225 1250 300 Other: Voiding Method Indwelling Catheter Indwelling Catheter Indwelling Catheter - Labs CBC & Chem 7: 11/17/18 05:28 11/17/18 05:28 Labs: Abnormal Lab Results - Last 24 Hours (Table) 11/16/18 11/17/18 11/17/18 Range/Units 12:00 05:28 05:28 WBC 12.0 H (3.8-10.6) k/uL RBC 3.80 L (4.30-5.90) m/uL Hgb 11.5 L (13.0-17.5) gm/dL Hct 34.1 L (39.0-53.0) % Neutrophils # 11.0 H (1.3-7.7) k/uL Lymphocytes # 0.4 L (1.0-4.8) k/uL Sodium 134 L (137-145) mmol/L Chloride 109 H (98-107) mmol/L Carbon Dioxide 14 L (22-30) mmol/L BUN 30 H (9-20) mg/dL Glucose 118 H (74-99) mg/dL POC Glucose (mg/dL) (75-99) mg/dL Calcium 7.7 L (8.4-10.2) mg/dL Total Protein 5.2 L (6.3-8.2) g/dL Albumin 2.7 L (3.5-5.0) g/dL Urine Protein Trace H (Negative) Urine Blood Small H (Negative) Amorphous Sediment Rare H (None) /hpf Urine Bacteria Rare H (None) /hpf Urine Mucus Rare H (None) /hpf 11/17/18 Range/Units 11:58 WBC (3.8-10.6) k/uL RBC (4.30-5.90) m/uL Hgb (13.0-17.5) gm/dL Hct (39.0-53.0) % Neutrophils # (1.3-7.7) k/uL Lymphocytes # (1.0-4.8) k/uL Sodium (137-145) mmol/L Chloride (98-107) mmol/L Carbon Dioxide (22-30) mmol/L BUN (9-20) mg/dL Glucose (74-99) mg/dL POC Glucose (mg/dL) 129 H (75-99) mg/dL Calcium (8.4-10.2) mg/dL Total Protein (6.3-8.2) g/dL Albumin (3.5-5.0) g/dL Urine Protein (Negative) Urine Blood (Negative) Amorphous Sediment (None) /hpf Urine Bacteria (None) /hpf Urine Mucus (None) /hpf Microbiology - Last 24 Hours (Table) 11/16/18 05:30 Urine Culture - Final Urine,Catheterized 11/15/18 09:34 Blood Culture - Preliminary Blood No Growth after 48 hours
--- NOTE | 2018-11-17 16:04 | P.PN ---
Subjective Progress Note Date: 11/17/18 Principal diagnosis: This is a 58-year-old male who was recently admitted for shortness of breath with a history of COPD, heart failure, and sleep apnea as he uses a CPAP at night. Patient has been off the BiPAP and is currently being closely monitored in the ICU. Patient's lactic acid level was elevated and is currently 1.9. Patient was severely dehydrated and receiving IV fluids of which he is at 100 miles an hour of normal saline at this time. Patient was lying in bed in no acute distress and maintaining oxygen saturation on 2 L of oxygen via nasal cannula. Patient is lethargic but easily arousable. Patient denies any shortness of breath, chest pain, or palpitations at this time. Patient is afebrile. Patient was having some mild diffuse abdominal pain. Patient had an abdominal CT done today per Dr. Cintron which showed overall nonspecific bowel gas pattern. Alternating areas of dilated and non-dilated bowel suggest dynamic ileus, early or mild obstruction felt less likely. Patient is currently NPO at this time. 11/17/2018 Patient is up in his recliner and is alert and oriented 3. Patient appears in no acute distress. Patient denies having any shortness of breath, chest pain, or palpitations at this time. Patient does have some mild epigastric discomfort but states has improved since yesterday. Patient is currently on ice chips as this CT showed dynamic ileus. Patient will be advanced to clear liquids and monitor closely. GI is following closely. Patient will be treated conservatively. Patient is afebrile. Patient is currently awaiting transport as he is being transferred to a medical surgical floor. Will continue to closely monitor. Objective - Vital Signs Vital signs: Vital Signs Temp 96.7 F L 11/17/18 14:44 Pulse 89 11/17/18 14:44 Resp 18 11/17/18 14:44 BP 106/68 11/17/18 14:44 Pulse Ox 97 11/17/18 14:44 Intake & Output 11/16/18 11/17/18 11/17/18 18:59 06:59 18:59 Intake Total 1740 1200 1400 Output Total 2225 1250 300 Balance -485 -50 1100 Weight 93.4 kg 91.9 kg Intake: IV 1500 1200 800 Sodium Chloride 0.9% 1, 1450 1200 800 000 ml @ 75 mls/hr IV . [id number] [facility] Rx#:[id number] cefTRIAXone 1 gm In 50 Sodium Chloride 0.9% 50 ml @ 100 mls/hr IVPB Q24HR [facility] Rx#:[id number] Oral 240 600 Output: Urine 2225 1250 300 Other: Voiding Method Indwelling Catheter Indwelling Catheter Indwelling Catheter - Exam Gen: This is a 58-year-old male sitting up in recliner in no acute distress HEENT: Head is atraumatic, normocephalic. Pupils equal, round. Sclerae is anicteric. NECK: Supple. No JVD. No lymphadenopathy. No thyromegaly. LUNGS: Lung sounds diminished bilaterally with no wheezes or crackles noted. No wheezes or rhonchi. No intercostal retractions. HEART: Regular rate and rhythm. No murmur. ABDOMEN: Soft. Bowel sounds are present. Mild tenderness noted in the mid epigastric area upon palpation. EXTREMITIES: No pedal edema. No calf tenderness. NEUROLOGICAL: Patient is awake, alert and oriented x3. Cranial nerves 2 through 12 are grossly intact. - Labs CBC & Chem 7: 11/17/18 05:28 11/17/18 05:28 Labs: Abnormal Lab Results - Last 24 Hours (Table) 11/17/18 11/17/18 11/17/18 Range/Units 05:28 05:28 11:58 WBC 12.0 H (3.8-10.6) k/uL RBC 3.80 L (4.30-5.90) m/uL Hgb 11.5 L (13.0-17.5) gm/dL Hct 34.1 L (39.0-53.0) % Neutrophils # 11.0 H (1.3-7.7) k/uL Lymphocytes # 0.4 L (1.0-4.8) k/uL Sodium 134 L (137-145) mmol/L Chloride 109 H (98-107) mmol/L Carbon Dioxide 14 L (22-30) mmol/L BUN 30 H (9-20) mg/dL Glucose 118 H (74-99) mg/dL POC Glucose (mg/dL) 129 H (75-99) mg/dL Calcium 7.7 L (8.4-10.2) mg/dL Total Protein 5.2 L (6.3-8.2) g/dL Albumin 2.7 L (3.5-5.0) g/dL Microbiology - Last 24 Hours (Table) 11/16/18 05:30 Urine Culture - Final Urine,Catheterized 11/15/18 09:34 Blood Culture - Preliminary Blood No Growth after 48 hours Assessment and Plan Assessment: Acute hypercapnic respiratory failure secondary to COPD exacerbation. Receiving inhalation treatments and systemic steroids. Still remains off the BiPAP with the exception of the CPAP use at night for his sleep apnea. Oxygen saturation is being maintained with 2 L via nasal cannula. Will continue to monitor close ly. Acute renal failure: Prerenal azotemia severe intravascular depletion probably due to diuretic therapy and lisinopril. Those medications will be held at this time. Congestive heart failure with chronic systolic dysfunction and a mildly decreased ejection fraction of 45%. Patient was volume depleted and was given IV fluid resuscitation. Willl continue to monitor his respiratory status and pu lmonary edema status. IV hydration has been maintained at 100 mL/hr of normal saline. Hypertension and patient was hypotensive yesterday. Currently holding hypertensive meds with the exception of metoprolol. Patient is currently on metoprolol tartrate 25 mg by mouth twice a day, restarted losartan 25 mg daily, and if blood pressure and renal functions tolerate can restart spironolactone tomorrow per Dr. Ruggiero. Sleep apnea, uses a CPAP machine at home which he will continue to do so here Hypovolemia with hyponatremia: Improving will continue to monitor labs and vitals closely Lactic acidosis: Secondary to intravascular volume depletion with severe dehydration and decreased organ perfusion. Improved current lactic acid is 0.9 Dynamic ileus: GI following and treating conservatively. Started on ice chips and tolerating well to clear liquid diet and adjust accordingly. Recommendations and discussion: Recommend to continue current medication and symptomatic management. will continue with breathing treatments and IV steroids at this time. Was on IV antibiotics of Rocephin which will be discontinued and patient will be started on oral doxycycline 100 mg twice a day. Will continue to monitor closely. Prognosis is guarded. Further recommendations to follow. Patient is being m asad to a medical surgical floor and will follow closely.
[2018-11-17 20:19] LABS: Glucose,Whole Blood 141 mg/dL (75-99)
[2018-11-17] MEDS: DOXYCYCLINE 100 MG CAP PO SCH (21:14)
[2018-11-17] MEDS: PRAVASTATIN SODIUM 40 MG TAB PO SCH (21:14)
[2018-11-17 21:54] VITALS: RESP 20
[2018-11-18] MEDS: HEPARIN SODIUM,PORCINE 5,000 UNIT/ML 1 ML VIAL SQ SCH ×2 (00:22→07:44)
[2018-11-18 05:22] VITALS: BP 119/75; TEMP 97.5
[2018-11-18] MEDS: SODIUM CHLORIDE 0.9% 1,000 ML IV SCH ×2 (06:10→11:14)
[2018-11-18] MEDS: FORMOTEROL FUMARATE 20 MCG/2 ML NEBU INHALATION SCH (07:18)
[2018-11-18] MEDS: IPRATROPIUM-ALBUTEROL 3 ML NEB INHALATION SCH ×2 (07:18→10:54)
[2018-11-18] MEDS: BUDESONIDE 1 MG/2 ML NEBU INHALATION SCH (07:18)
[2018-11-18] MEDS: QUEtiapine 25 MG TAB PO SCH (07:44)
[2018-11-18] MEDS: methylPREDNISolone SOD SUCCI 40 MG/ML 1 ML VIAL IV SCH (07:44)
[2018-11-18] MEDS: ASPIRIN 81 MG PO SCH (07:44)
[2018-11-18] MEDS: FAMOTIDINE 20 MG TAB PO SCH (07:44)
[2018-11-18] MEDS: FOLIC ACID 1 MG TAB PO SCH (07:44)
[2018-11-18] MEDS: METOPROLOL TARTRATE 25 MG TAB PO SCH (07:44)
[2018-11-18] MEDS: DOXYCYCLINE 100 MG CAP PO SCH (07:44)
[2018-11-18] MEDS ORDERED: LOSARTAN 25 MG TAB PO SCH (09:00)
[2018-11-18] MEDS ORDERED: SPIRONOLACTONE 25 MG TAB PO SCH (10:00)
--- NOTE | 2018-11-18 10:00 | P.PN ---
Subjective This is a pleasant 58-year-old female presented to the hospital symptoms of shortness of breath cough, nausea, vomiting and diarrhea. He is admitted to the hospital for treatment of COPD. He had some episodes of hypotension and medications have been adjusted. He is being treated for ileus by surgery. Advanced diet today as tolerates. Currently maintained on aspirin 81 mg daily, losartan 25 mg daily, lopressor 25 mg BID and pravastatin 40 mg daily. Blood pressure today 119/75 heart rate 68. Laboratory data reviewed, WBC 12.0, hgb 11.5, plt 217, sodium 134, potassium 4, cretinine 0.9. He is seen and examined sitting up in bed in no acute distress. He denies chest pain, shortness of breath, dizziness or palpitations. GENERAL: Well-appearing, well-nourished and in no acute distress. NECK: Supple without JVD or thyromegaly. LUNGS: Breath sounds clear to auscultation bilaterally. Respiration equal and unlabored. No wheezes, rales or rhonchi. Diminished bilaterally. HEART: Regular rate and rhythm without murmurs, rubs or gallops. S1 and S2 heard. EXTREMITIES: Normal range of motion, no edema. No clubbing or cyanosis. Perip heral pulses intact. ASSESSMENT Acute respiratory failure secondary to chronic COPD Acute renal failure Dilated cardiomyopathy, EF 40% Hypertension, episodes of hypotension Dehydration COPD SHARI Dyslipidemia Former nicotine dependence PLAN Resume aldactone at 25 mg daily. Follow blood pressure and renal function in the morning. Nurse Practitioner note has been reviewed, I agree with a documented findings and plan of care. Patient was seen and examined. Objective - Vital Signs Vital signs: Vital Signs Temp 97.5 F L 11/18/18 04:30 Pulse 72 11/18/18 07:50 Resp 20 11/18/18 04:30 BP 119/75 11/18/18 04:30 Pulse Ox 96 11/18/18 05:15 Intake & Output 11/17/18 11/18/18 11/18/18 18:59 06:59 18:59 Intake Total 1400 500 240 Output Total 300 Balance 1100 500 240 Weight 95.5 kg Intake: IV 800 Sodium Chloride 0.9% 1, 800 000 ml @ 75 mls/hr IV . [id number] [facility] Rx#:[id number] Oral 600 500 240 Output: Urine 300 Other: Voiding Method Indwelling Catheter Toilet Urinal # Voids 1 # Bowel Movements 1 - Labs CBC & Chem 7: 11/17/18 05:28 11/17/18 05:28 Labs: Abnormal Lab Results - Last 24 Hours (Table) 11/17/18 11/17/18 Range/Units 11:58 20:12 POC Glucose (mg/dL) 129 H 141 H (75-99) mg/dL Microbiology - Last 24 Hours (Table) 11/15/18 22:50 Stool Culture - Preliminary Stool 11/16/18 05:30 Urine Culture - Final Urine,Catheterized 11/15/18 09:34 Blood Culture - Preliminary Blood No Growth after 48 hours
--- NOTE | 2018-11-18 10:10 | P.PN ---
Subjective Progress Note Date: 11/18/18 CHIEF COMPLAINT: Abdominal pain HISTORY OF PRESENT ILLNESS: patient seen and examined at the bedside. patient reports minimal lower abdominal pain. Denies nausea or vomiting. Passing flatus. Denies bowel movement. Tolerating full liquid diet. PHYSICAL EXAM: VITAL SIGNS: Reviewed. GENERAL: Well-developed in no acute distress. HEENT: No sclera icterus. Extraocular movements grossly intact. Moist buccal mucosa. Head is atraumatic, normocephalic. ABDOMEN: Soft. Nondistended. Positive bowel sounds. No signs of peritonitis NEUROLOGIC: Alert and oriented. Cranial nerves II through XII grossly intact. ASSESSMENT: 1. Abdominal pain 2. Ileus, small bowel obstruction less likely 3. History of colonoscopy in 2015 4. History of laparoscopic cholecystectomy PLAN: Advance diet to regular for dinner No surgical intervention recommended at this time. Continue conservative measures Nurse practitioner note has been reviewed by physician. Signing provider agrees with the documented findings, assessment, and plan of care. Objective - Vital Signs Vital signs: Vital Signs Temp 97.5 F L 11/18/18 04:30 Pulse 72 11/18/18 07:50 Resp 20 11/18/18 04:30 BP 119/75 11/18/18 04:30 Pulse Ox 96 11/18/18 05:15 Intake & Output 11/17/18 11/18/18 11/18/18 18:59 06:59 18:59 Intake Total 1400 500 240 Output Total 300 Balance 1100 500 240 Weight 95.5 kg Intake: IV 800 Sodium Chloride 0.9% 1, 800 000 ml @ 75 mls/hr IV . [id number] [facility] Rx#:[id number] Oral 600 500 240 Output: Urine 300 Other: Voiding Method Indwelling Catheter Toilet Urinal # Voids 1 # Bowel Movements 1 - Labs CBC & Chem 7: 11/17/18 05:28 11/17/18 05:28 Labs: Abnormal Lab Results - Last 24 Hours (Table) 11/17/18 11/17/18 Range/Units 11:58 20:12 POC Glucose (mg/dL) 129 H 141 H (75-99) mg/dL Microbiology - Last 24 Hours (Table) 11/15/18 22:50 Stool Culture - Preliminary Stool 11/16/18 05:30 Urine Culture - Final Urine,Catheterized 11/15/18 09:34 Blood Culture - Preliminary Blood No Growth after 48 hours
[2018-11-18] MEDS ORDERED: DOCUSATE 100 MG CAP PO SCH (10:15)
[2018-11-18 11:08] VITALS: PULSE 72
--- NOTE | 2018-11-18 11:42 | P.PN ---
Subjective Progress Note Date: 11/18/18 Principal diagnosis: Shortness of breath, anion gap metabolic acidosis rule out sepsis On 11/16/2018 patient was seen again in follow-up in the intensive care unit, he is lethargic, but arousable, currently on 2 L of oxygen with a pulse ox of 92- 94%, still slightly tachycardic, in sinus mechanism with a rate of 115 BPM, he is afebrile, blood pressures are somewhat marginal, with the systolic in the 90s and diastolic in the 50s. Patient has been fluid resuscitated with liters of normal saline, and patient had received normal saline at a rate of 200 ML per hour for last 24 hours. His lactic acid did come down to 1.9 on today's labs. We blood cell count is 12.6, hemoglobin is 12.6, as been nearly 5 g drop in hemoglobin since yesterday, likely hemodilution related. Serum sodium is 131, potassium is 3.9, chloride is 105, CO2 is 11, anion gap is down to 15, BUN is 30, creatinine is 1.20. Patient is nauseous, has had limited oral intake, no diarrhea, abdomen is distended but nontender, soft. Culture is negative thus far, blood culture is pending, C. diff as been ordered, has not been collected, urine culture is pending. Lung sounds are diminished, no significant rhonchi or wheezing, patient is on IV steroids, breathing treatments, empiric antibiotics in the form of Rocephin. On 11/17/2018 patient is seen in follow-up in the intensive care unit, she is much more awake and alert on today's exam, on 2 L of oxygen, in no acute distress, denies shortness of breath, no chest pain, lung sounds are positive for a few bibasilar crackles, no wheezing or rhonchi, no cough or congestion. 0.9 normal saline infusing at a rate of 100 ML per hour, no other drips. No abdominal tenderness, patient states he started to pass small amount of gas, computed tomography scan of the abdomen and pelvis was completed yesterday with IV contrast showing nonspecific bowel gas pattern, showing areas of dilated and nondilated bowel suggesting dynamic ileus. Surgical services are following, and patient is being treated conservatively, patient is nothing by mouth. Abdominal x-ray shows findings suggesting improving ileus. Today's is have been reviewed, showing white blood cell count of 12.0, hemoglobin of 11.5, sodium is 134, potassium is 4.0, chloride is 109, CO2 is 14, B1 is 30, creatinine is 0.90. Urine and blood culture is pending. Abdomen is soft, nontender, no nausea today, no further vomiting. On 11/18/2018 she seen in follow-up on medical surgical floor. He sitting up in the chair, no acute distress, lung sounds are clear, no rhonchi, no wheezing no rales, denies any shortness of breath, denies any chest pain, no cough or congestion, although he is feeling better, denies any abdominal pain, he is passing flatus, abdomen is soft, nontender, patient remains on IV fluids of 0.9 normal saline at a rate of 100. BMP is pending, blood stool and urine cultures have been negative thus far. No nausea vomiting or diarrhea. He is tolerating full liquid diet, surgical services are following, and patient being treated conservatively for ileus Objective - Vital Signs Vital signs: Vital Signs Temp 97.5 F L 11/18/18 04:30 Pulse 72 11/18/18 11:08 Resp 20 11/18/18 04:30 BP 119/75 11/18/18 04:30 Pulse Ox 96 11/18/18 05:15 Intake & Output 11/17/18 11/18/18 11/18/18 18:59 06:59 18:59 Intake Total 1400 500 240 Output Total 300 Balance 1100 500 240 Weight 95.5 kg Intake: IV 800 Sodium Chloride 0.9% 1, 800 000 ml @ 75 mls/hr IV . [id number] [facility] Rx#:[id number] Oral 600 500 240 Output: Urine 300 Other: Voiding Method Indwelling Catheter Toilet Urinal # Voids 1 # Bowel Movements 1 - Exam GENERAL EXAM: Somewhat lethargic, but arousable, 58-year-old white male, on room air comfortable in no apparent distress. HEAD: Normocephalic/atraumatic. EYES: Normal reaction of pupils, equal size. Conjunctiva pink, sclera white. NOSE: Clear with pink turbinates. THROAT: No erythema or exudates. NECK: No masses, no JVD, no thyroid enlargement, no adenopathy. CHEST: No chest wall deformity. Symmetrical expansion. LUNGS: Equal air entry with no crackles, wheeze, rhonchi or dullness. Clear breath sounds bilaterally CVS: Regular rate and rhythm, normal S1 and S2, no gallops, no murmurs, no rubs ABDOMEN: Soft, nontender. No hepatosplenomegaly, normal bowel sounds, no guarding or rigidity. EXTREMITIES: No clubbing, no edema, no cyanosis, 2+ pulses and upper and lower extremities. MUSCULOSKELETAL: Muscle strength and tone normal. SPINE: No scoliosis or deformity SKIN: No rashes CENTRAL NERVOUS SYSTEM: Lethargic. No focal deficits, tone is normal in all 4 extremities. - Labs CBC & Chem 7: 11/17/18 05:28 11/17/18 05:28 Labs: Abnormal Lab Results - Last 24 Hours (Table) 11/17/18 11/17/18 Range/Units 11:58 20:12 POC Glucose (mg/dL) 129 H 141 H (75-99) mg/dL Microbiology - Last 24 Hours (Table) 11/15/18 22:50 Stool Culture - Preliminary Stool 11/16/18 05:30 Urine Culture - Final Urine,Catheterized 11/15/18 09:34 Blood Culture - Preliminary Blood No Growth after 48 hours Assessment and Plan Plan: Assessment: #1. Shortness of breath, multifactorial, related to COPD exacerbation, and sepsis. CTA chest was negative for pulmonary embolism, and some early pulmonary fibrosis changes with emphysematous blebs #2. Septic shock, and the source is under investigation, chest x-ray showed chronic emphysematous and chronic parenchymal fibrotic changes, with persistent bilateral lower lung infiltrates, possibility of pneumonia is not excluded. #3. Anion gap metabolic acidosis related to sepsis, improved with fluid resuscitation #4. Diarrhea, dehydration #5. Acute kidney injury related to ATN #6. Mild hyponatremia, related to hypovolemia #7. Chronic congestive heart failure with chronic systolic dysfunction #8. COPD #9. Obstructive sleep apnea on CPAP therapy Plan: Continue current therapies, breathing treatments, on sounds are clear, no shortness of breath, patient is on room air, we'll stop the IV steroids, no abdominal pain, no nausea vomiting, passing flatus, tolerating full liquid diet. From pulmonary perspective he is doing great, we'll sign off and follow on as- needed basis I performed a history & physical examination of the patient and discussed their management with my nurse practitioner, Chitra Juarez. I reviewed the nurse practitioner's note and agree with the documented findings and plan of care. Lung sounds are positive for diminished breath sounds. The findings and the impression was discussed with the patient. I attest to the documentation by the nurse practitioner. Time with Patient: Less than 30
[2018-11-18 12:00] LABS: African American GFR (CKD) >90 (>60 ml/min/1.73 sqM); Anion Gap 9 mmol/L; Blood Urea Nitrogen 32 mg/dL (9-20); Calcium 8.6 mg/dL (8.4-10.2); Carbon Dioxide 15 mmol/L (22-30); Chloride 109 mmol/L (98-107); Glucose 125 mg/dL (74-99); Potassium 4.5 mmol/L (3.5-5.1); Sodium 133 mmol/L (137-145)
--- NOTE | 2018-11-18 14:39 | P.DS ---
Providers Date of admission: 11/15/18 10:53 Expected date of discharge: 11/18/18 Attending physician: Belén Andujar Consults: 11/15/18 10:53 Consult Physician Routine Consulting Provider: Maurisio Webber Consult Reason/Comments: copdy Do you want consulting provider notified?: Yes Consult Physician Routine Consulting Provider: Antonieta Aleman Consult Reason/Comments: chf Do you want consulting provider notified?: Yes 11/16/18 10:52 Consult Physician Routine Consulting Provider: Arian Ruffin Consult Reason/Comments: abdominal pain, distention, possible SBO Do you want consulting provider notified?: Yes Primary care physician: Richard Albert Hospital Course: Final diagnosis Acute hypercapnic respiratory failure secondary to COPD exacerbation Renal failure: Prerenal azotemia with severe intravascular depletion probably due to diuretic therapy and lisinopril Congestive heart failure with chronic systolic dysfunction, ejection fraction 45% Attention Sleep apnea Hypovolemia with hyponatremia Lactic acidosis Dynamic ileus Discharge disposition The patient is being discharged in a stable condition with guarded prognosis to home and will follow-up with primary care in 1-2 days. History of present illness This is a 58-year-old male who was admitted for COPD exacerbation, dehydration, and dynamic ileus. Patient is stable currently. Improved much. Maintaining saturations on room air. Patient will go home on prednisone with taper. Patient's Lasix will be held patient will follow-up in 3 days for repeat BMP. Patient denies any shortness of breath, chest pain, or palpitations at this time. Patient is afebrile. Patient is tolerating a regular diet with no complaints of abdominal pain, nausea, vomiting, or diarrhea. Patient will be discharged home in a stable condition with guarded prognosis. On exam vital signs are stable. Oxygen saturation is 96% on room air. Cardio S1 and S2 are normal. Respiratory system shows slightly diminished lung sounds otherwise is clear to auscultation. Abdomen is soft and non-tender. Nervous system shows no focal deficits and gait is steady. Please refer to the medication reconciliation sheet for a list of medications. Patient Condition at Discharge: Fair Plan - Discharge Summary Discharge Rx Participant: No New Discharge Prescriptions: New Spironolactone [Aldactone] 25 mg PO DAILY #30 tab predniSONE 10 mg PO DIRECTED #30 tab Continue Aspirin 81 mg PO DAILY #0 chew Folic Acid 1 mg PO DAILY Pravastatin Sodium [Pravachol] 40 mg PO HS Metoprolol Succinate (ER) [Toprol XL] 50 mg PO DAILY Losartan [Cozaar] 25 mg PO DAILY QUEtiapine XR [SEROquel XR] 50 mg PO HS Multivitamins, Thera [Multivitamin (formulary)] 1 tab PO DAILY Albuterol Inhaler [Ventolin Hfa Inhaler] 2 puff INHALATION RT-Q6H PRN #1 puff PRN Reason: Shortness Of Breath Discontinued Spironolactone 50 mg PO DAILY Furosemide [Lasix] 40 mg PO DAILY Discharge Medication List Aspirin 81 mg PO DAILY #0 chew 02/27/16 [Rx] Folic Acid 1 mg PO DAILY 11/15/18 [History] Losartan [Cozaar] 25 mg PO DAILY 11/15/18 [History] Metoprolol Succinate (ER) [Toprol XL] 50 mg PO DAILY 11/15/18 [History] Multivitamins, Thera [Multivitamin (formulary)] 1 tab PO DAILY 11/15/18 [History] Pravastatin Sodium [Pravachol] 40 mg PO HS 11/15/18 [History] QUEtiapine XR [SEROquel XR] 50 mg PO HS 11/15/18 [History] Albuterol Inhaler [Ventolin Hfa Inhaler] 2 puff INHALATION RT-Q6H PRN #1 puff 11/18/18 [Rx] Spironolactone [Aldactone] 25 mg PO DAILY #30 tab 11/18/18 [Rx] predniSONE 10 mg PO DIRECTED #30 tab 11/18/18 [Rx] Follow up Appointment(s)/Referral(s): Roosevelt Ramos MD [Primary Care Provider] - 11/19/18 2:00 pm Ambulatory/Diagnostic Orders: Basic Metabolic Panel [LAB.AMB] Time Frame: 3 Days, Location: None Selected Patient Instructions/Handouts: Heart Failure (DC), COPD (Chronic Obstructive Pulmonary Disease) (DC) Activity/Diet/Wound Care/Special Instructions: Activity Limited until follow-up Continue current diet Hold the Lasix for now and recheck BMP labs in 3 days Follow-up with primary care provider this week Discharge Disposition: HOME SELF-CARE
--- NOTE | 2018-11-22 09:07 | CDI ---
Documentation Clarification Form Date: 11/22/18 From: Irma Gamez Phone: If questions call Carla Sylvester @ [phone], Hours-8:30 am & 5 pm M- F Admit Date: 11/15/2018 10:53:00 AM Patient Name: Leif Munguia Visit Number: [id number] Discharge Date: 11/18/2018 2:01:00 PM ATTENTION: The Clinical Documentation Specialists (CDI) and [facility] Coding Staff appreciate your assistance in clarifying documentation. Please respond to the clarification below the line at the bottom and electronically sign. The CDI & [facility] Coding staff will review the response and follow-up if needed. Please note: Queries are made part of the Legal Health Record. If you have any questions, please contact the author of this message via ITS. Dr. Addison Gaffney The diagnosis septic shock was documented in the PNs 11/16/ 11/17 & 11/[address] Cintron , R/Osepsis was documented in 11/15 consult, & PNs 11/16, 11/17 & 11/[address] Cintron but is not consistently noted in subsequent documentation. History/Risk Factors: acute respiratory failure w hypercapnia, emphysema, chronic systolic CHF w HTN, Clinical Indicators: hypotension, acidosis, Lactic acid-7.4, Lactic acid Sepsis Rflx-Y Treatment: IV fluids, Duoneb, IV Solu-medrol, IV Rocephin, Please clarify if the sepsis w septic shock was: Present/active this admission Treated and resolved this admission Ruled out Other, please specify Clinically unable to determine admitted with sepsis criteria, treated and resolved this admission MTDD
== END 2018-11-18 14:01 | disposition home or self-care (01) | DRG 871 ==
LOC: EC 08:51 → 2SICU 10:53 → 4MS4W 11-17 10:58
PROVIDERS: ADMIT Hospitalist; ATTEND Hospitalist
PROC: 5A09357 Assistance with Respiratory Ventilation, Less than 24 Consecutive Hours, Continuous Positive Airway Pressure (ICD-10-PCS; principal; 2018-11-15)
PROC: 5A09457 Assistance with Respiratory Ventilation, 24-96 Consecutive Hours, Continuous Positive Airway Pressure (ICD-10-PCS; 2018-11-15)
DX: A41.9 Sepsis, unspecified organism (principal); J96.02 Acute respiratory failure with hypercapnia; N17.0 Acute kidney failure with tubular necrosis; I50.22 Chronic systolic (congestive) heart failure; E87.1 Hypo-osmolality and hyponatremia; E87.2 Acidosis; K56.7 Ileus, unspecified; I42.0 Dilated cardiomyopathy; I11.0 Hypertensive heart disease with heart failure; J43.9 Emphysema, unspecified; E86.1 Hypovolemia; E78.5 Hyperlipidemia, unspecified; G47.33 Obstructive sleep apnea (adult) (pediatric); E86.0 Dehydration; L40.9 Psoriasis, unspecified; D64.9 Anemia, unspecified; K57.90 Diverticulosis of intestine, part unspecified, without perforation or abscess without bleeding; T50.2X5A Adverse effect of carbonic-anhydrase inhibitors, benzothiadiazides and other diuretics, initial encounter; Z79.82 Long term (current) use of aspirin; Z79.899 Other long term (current) drug therapy; Z99.89 Dependence on other enabling machines and devices; Z90.49 Acquired absence of other specified parts of digestive tract; Z87.891 Personal history of nicotine dependence; Z80.1 Family history of malignant neoplasm of trachea, bronchus and lung; Z82.49 Family history of ischemic heart disease and other diseases of the circulatory system
CPT/HCPCS: 36415; 36600; 71045; 71275; 74018; 74019; 74177; 80048; 80053; 81001; 82550; 82805; 83605; 83735; 83880; 84484; 85025; 85379; 85610; 85730; 87040; 87045; 87046; 87086; 87324; 87502; 93005; 94640; 94660; 94760; 96360; 96374; 96375; 99291

== ENCOUNTER → 2020-08-06 | Outpatient (CLI) | payer OTHER ==
[2020-08-06 12:56] LABS: HCT 42.6 % (39.0-53.0); HGB 14.2 gm/dL (13.0-17.5); MCH 30.5 pg (25.0-35.0); MCHC 33.3 g/dL (31.0-37.0); MCV 91.8 fL (80.0-100.0); Mean Platelet Volume 6.5; Platelet Count 341 k/uL (150-450); RBC 4.64 m/uL (4.30-5.90); RDW 14.8 % (11.5-15.5); WBC 7.9 k/uL (3.8-10.6)
[2020-08-06 13:33] LABS: African American GFR (CKD) >90 (>60 ml/min/1.73 sqM); Anion Gap 7 mmol/L; Blood Urea Nitrogen 16 mg/dL (9-20); Carbon Dioxide 25 mmol/L (22-30); Chloride 101 mmol/L (98-107); Non-African American GFR(CKD) >90 (>60 ml/min/1.73 sqM); Potassium 4.5 mmol/L (3.5-5.1); Sodium 133 mmol/L (137-145)
== END | disposition home or self-care (01) ==
LOC: LABPAT 11:53
PROVIDERS: ATTEND Internal Medicine
DX: Z01.818 Encounter for other preprocedural examination (principal); R94.39 Abnormal result of other cardiovascular function study
CPT/HCPCS: 36415; 80051; 82565; 84520; 85027

== ENCOUNTER 2020-08-10 10:43 | Day surgery (SDC) | payer OTHER ==
[2020-08-06 13:54] VITALS: BMI 32.1
[~2020-08-10 10:43] MED LIST: ALPRAZolam 0.25 MG TAB PO PRN; ALPRAZolam 0.5 MG TAB PO PRN; ASPIRIN 325 MG TAB PO STA; HEPARIN SODIUM,PORCINE 10,000 UNIT in SODIUM CHLORIDE 0.9% 1,000 ML IRRIGATION PRN; HEPARIN SODIUM,PORCINE 2,500 UNIT in SODIUM CHLORIDE 0.9% 250 ML IRRIGATION PRN; NITROGLYCERIN SL TABS 0.4 MG TAB SUBLINGUAL PRN; SODIUM CHLORIDE 0.9% 1,000 ML in EMPTY BAG 1 BAG IV ONE
[2020-08-10] MEDS ORDERED: SODIUM CHLORIDE 0.9% 1,000 ML IV ONE (11:07)
[2020-08-10 11:15] VITALS: RESP 16
[2020-08-10 11:16] VITALS: TEMP 97
[2020-08-10] MEDS ORDERED: LIDOCAINE 1% INJ 10MG/ML (20 ML MDV) ONE (12:09)
[2020-08-10] MEDS ORDERED: fentaNYL (PF) 50 MCG/ML 2 ML AMP ONE (12:09)
[2020-08-10] MEDS ORDERED: VERAPAMIL 2.5 MG/ML 2 ML AMP ONE (12:09)
[2020-08-10] MEDS ORDERED: LIDOCAINE 1% INJ 10MG/ML (20 ML MDV) SQ ONE (12:15)
[2020-08-10] MEDS ORDERED: fentaNYL (PF) 50 MCG/ML 2 ML AMP IV ONE (12:15)
[2020-08-10] MEDS ORDERED: MIDAZOLAM 2 MG/2 ML VIAL IV ONE (12:15)
[2020-08-10] MEDS ORDERED: HEPARIN SODIUM 1,000 UN/ML (10ML VL) ONE (12:18)
[2020-08-10] MEDS ORDERED: VERAPAMIL SYRINGE (5 MG/10 ML) INTRAARTER ONE (12:18)
[2020-08-10] MEDS ORDERED: HEPARIN SODIUM 1,000 UN/ML (10ML VL) IV ONE (12:18)
[2020-08-10] MEDS ORDERED: IOPAMIDOL-370 125ML BTL INJ ONE (12:36)
[2020-08-10] MEDS ORDERED: RX INFO: IV CONTRAST WAS GIVEN 1 EACH MISC MISCELLANE PRN (12:40)
--- NOTE | 2020-08-10 12:47 | P.CARDCATH ---
Description of Procedure: PROCEDURES PERFORMED: Left heart catheterization, bilateral coronary angiography INDICATION: Cardiomyopathy, nonsustained VT, shortness breath HISTORY: Patient is a pleasant 60-year-old male with history of hypertension, hyperlipidemia, mild CAD by prior heart catheterization, and recent workup with cardiomyopathy with ejection fraction 40% and occasional nonsustained VT. He has been having increased shortness of breath on exertion. Therefore recommendations were for heart catheterization. CONSENT:I have discussed the risks, benefits and alternative therapies for the above-mentioned procedure and for both sedation/analgesia as well as necessary blood product administration, if indicated, as they pertain to this patient. The patient has indicated understanding and acceptance of the risks and procedures discussed. PROCEDURE: After the risks, benefits and alternatives of the above mentioned procedure explained in detail with the patient, informed consent was obtained. Patient was taken to the catheterization lab and prepped and draped in usual fashion. 1% lidocaine was used to anesthetize the right radial artery. A 6- Estonian sheath was placed in the right radial artery using modified Seldinger technique. Left coronary angiography was performed with a 5-Estonian JL 3.5 catheter and right coronary angiography was performed with a 5-Estonian JR5 catheter in various views. A 5-Estonian FR5 catheter was inserted into the left ventricle and pressure measurements were obtained. Although the RCA appeared moderate at 50%, given nonsustained VT, the decision was made to performed iFR. Therefore heparin was given. A 6Fr AR2 guide was used to engage the RCA. A 0.014 pressure wire was inserted and normalized. The guidewire was advanced 2 cm distal to the RCA lesion and iFR measurement was obtained at 0.93, 0.94. The wire and catheter were then removed. The right radial sheath was removed and a TR band was placed with hemostasis achieved. The patient tolerated the procedure well. Patient was transported back to the post catheterization holding area in stable condition. Conscious Sedation: Patient was monitored under the direct supervision of vision of myself for conscious sedation using Versed and fentanyl for a total duration of 21 minutes HEMODYNAMICS: Aortic: 92/52 LV: 88/1, LVEDP 5mmHg SELECTIVE CORONARY ARTERIOGRAPHY: LEFT MAIN: The left main is a large caliber vessel which bifurcates into the LAD and circumflex. There is no significant stenosis. LEFT ANTERIOR DESCENDING CORONARY ARTERY: LAD is a large caliber vessel which wraps around to the apex. There is no significant stenosis. LEFT CIRCUMFLEX CORONARY ARTERY: Left circumflex is a moderate caliber vessel without significant stenosis. RIGHT CORONARY ARTERY: The right coronary artery is a large caliber vessel which gives off a PDA and PLV branch and is the dominant vessel. There is a focal mid RCA 50% stenosis. iFR of mid RCA is 0.94. FINAL IMPRESSION: 1. Relatively normal coronary arteries as described above other than only mid RCA 50% stenosis, iFR normal at 0.94. 2. Low left sided filling pressures PLAN: 1. Aggressive risk factor modification per most recent ACC/AHA guidelines. 2. Follow-up in the office in 1-2 weeks.
[2020-08-10 17:17] VITALS: BP 112/78; PULSE 91
== END 2020-08-10 17:03 | disposition home or self-care (01) ==
LOC: CATHCVL 10:43
PROVIDERS: ATTEND Internal Medicine
DX: I47.2 Ventricular tachycardia (principal); I42.0 Dilated cardiomyopathy; R94.39 Abnormal result of other cardiovascular function study; E78.5 Hyperlipidemia, unspecified; I11.0 Hypertensive heart disease with heart failure; I50.31 Acute diastolic (congestive) heart failure; Z72.0 Tobacco use; Z88.8 Allergy status to other drugs, medicaments and biological substances; Z79.82 Long term (current) use of aspirin; Z79.899 Other long term (current) drug therapy
CPT/HCPCS: 93571; 93458; C1887 ×2; C1769; C1894; J2250; J2001; J3010; J1644; Q9967

== ENCOUNTER → 2020-09-10 | Outpatient (CLI) | payer OTHER ==
[2020-09-10 16:52] LABS: African American GFR (CKD) 119.7 (60.0-200.0); Anion Gap 6.5 mmol/L (4.00-12.00); BUN/Creat Ratio 21.43 Ratio (12.00-20.00); Calcium 8.5 mg/dL (8.7-10.3); Carbon Dioxide 20.5 mmol/L (21.6-31.8); Chol/HDL Ratio 3.94; LDL Cholesterol,Calculated 85.8 mg/dL (0.0-131.0); Non-African American GFR(CKD) 103.3 (60.0-200.0); Potassium 4.4 mmol/L (3.5-5.5); VLDL Calculation 17.2 mg/dL (5.00-40.00)
== END | disposition home or self-care (01) ==
LOC: LABWHC1 08:57
PROVIDERS: ATTEND Internal Medicine Clinical Cardiac Electrophysiology
DX: I50.9 Heart failure, unspecified (principal); I25.10 Atherosclerotic heart disease of native coronary artery without angina pectoris
CPT/HCPCS: 36415; 80048; 80061

== ENCOUNTER → 2023-11-09 | Outpatient (CLI) | payer OTHER ==
[2023-11-09 21:09] LABS: Magnesium 1.8 mg/dL (1.5-2.4)
[2023-11-09 21:11] LABS: ALT 39 U/L (10-49); AST 35 U/L (14-35); Albumin 4.2 g/dL (3.8-4.9); Albumin/Globulin Ratio 1.75 Ratio (1.60-3.17); Alkaline Phosphatase 75 U/L (41-126); BUN/Creat Ratio 27.83 Ratio (12.00-20.00); Blood Urea Nitrogen 33.4 mg/dL (9.0-27.0); Calcium 8.8 mg/dL (8.7-10.3); Chloride 103 mmol/L (96-109); Globulin 2.4 g/dL (1.6-3.3); Glucose 119 mg/dL (70-110); Potassium 4.8 mmol/L (3.5-5.5); Sodium 125 mmol/L (135-145); Total Bilirubin 0.3 mg/dL (0.3-1.2); Total Protein 6.6 g/dL (6.2-8.2)
== END | disposition home or self-care (01) ==
LOC: LABWHC1 13:41
PROVIDERS: ATTEND Nurse Practitioner Adult Health
DX: I10 Essential (primary) hypertension (principal)
CPT/HCPCS: 36415; 80053; 83735; 84443

== ENCOUNTER → 2023-12-28 | Outpatient (CLI) | payer OTHER ==
--- NOTE | 2023-12-28 12:35 | US ---
EXAMINATION TYPE: US venous doppler duplex LE DATE OF EXAM: 12/28/2023 12:25 PM COMPARISON: NONE CLINICAL INDICATION: Male, 63 years old with history of M79.605 PAIN IN LEFT LEG; Left lower leg swel ling and redness. No injury. On aspirin. No injury. SIDE PERFORMED: Bilateral TECHNIQUE: The lower extremity deep venous system is examined utilizing real time linear array sonog delmy with graded compression, doppler sonography and color-flow sonography. VESSELS IMAGED: Common Femoral Vein Deep Femoral Vein Greater Saphenous Vein * Femoral Vein Popliteal Vein Small Saphenous Vein * Proximal Calf Veins (* superficial vessels) Right Leg: Negative for DVT Left Leg: Negative for DVT IMPRESSION: Grayscale, color doppler, spectral doppler imaging performed of the deep veins of the lo wer extremities. There is normal flow, compressibility, vascular waveforms.
== END | disposition home or self-care (01) ==
LOC: RADUSWWP 11:58
PROVIDERS: ATTEND Internal Medicine
DX: M79.605 Pain in left leg
CPT/HCPCS: 93970

== ENCOUNTER → 2024-06-28 | Outpatient (CLI) | payer OTHER ==
--- NOTE | 2024-06-28 11:23 | XR ---
EXAMINATION TYPE: XR chest 2V DATE OF EXAM: 06/28/2024 CLINICAL HISTORY: Pneumonia TECHNIQUE: Frontal and lateral views of the chest are obtained. COMPARISON: Prior chest x-ray June 18, 2024 FINDINGS: Persistent reticular increased opacities in the bilateral lower lungs on background chroni c emphysematous change. There is no suspicious new focal air space opacity, pleural effusion, or pneu mothorax seen. Redemonstration of azygos lobe/fissure which is a normal variant. The cardiac silhouet te size remains within normal limits. The osseous structures are intact. IMPRESSION: Chronic changes without new acute pulmonary infiltrate. [facility], , 06/28/2024 11:20 AM
== END | disposition home or self-care (01) ==
LOC: RADXRMAIN 11:05
PROVIDERS: ATTEND Internal Medicine
DX: J18.9 Pneumonia, unspecified organism (principal); J43.9 Emphysema, unspecified
CPT/HCPCS: 71046